=== PATIENT | female | born 1945 | race Caucasian/White ===

== ENCOUNTER 2018-06-06 13:39 | Emergency (ER) | payer MEDICARE, MEDICAID ==
[~2018-06-06] VITALS: Ht 162.6 cm; Wt 70.0 kg
[2018-06-06] MEDS ORDERED: ketorolac trometh. 30mg/ml inj. IM ONE (13:55)
[2018-06-06] MEDS ORDERED: HYDROcodone/acetaminophen 10/325mg tab PO ONE (13:55)
[2018-06-06] MEDS ORDERED: morphine 4 MG/ML inj SYRINge IM ONE (13:55)
[2018-06-06] MEDS ORDERED: ketorolac tromethamine 15mg/ml inj. IM ONE (14:00)
[2018-06-06 14:21] VITALS: BP 143/84
[2018-06-06] MEDS ORDERED: colchicine 0.6mg tablet PO ONE (14:35)
[2018-06-06] MEDS ORDERED: OXYC-150 PO (14:57)
== END 2018-06-06 16:13 | disposition home or self-care (01) ==
LOC: ER 13:40
DX: M25.531 Pain in right wrist (principal); M19.90 Unspecified osteoarthritis, unspecified site; G89.29 Other chronic pain; Z86.73 Personal history of transient ischemic attack (TIA), and cerebral infarction without residual deficits; F17.200 Nicotine dependence, unspecified, uncomplicated
CPT/HCPCS: 96372; 99284; J1885; J2270

== ENCOUNTER 2020-04-17 07:43 | Emergency (ER) | payer MEDICARE, MEDICAID ==
[~2020-04-17] VITALS: Ht 165.1 cm; Wt 113.0 kg
[~2020-04-17 07:43] MED LIST: OXYC-150 PO
[2020-04-17 07:47] VITALS: BP 149/73
[2020-04-17] MEDS ORDERED: ketorolac trometh. 30mg/ml inj. IV ONE (08:20)
[2020-04-17] MEDS ORDERED: normal saline 1000ml 1,000 ML IV ONE (08:20)
[2020-04-17] MEDS ORDERED: HYDROcodone/acetaminophen 5mg/325mg tablet PO ONE (08:20)
[2020-04-17] MEDS ORDERED: ondansetron/PF 4mg/2ml inj IV ONE (08:20)
[2020-04-17] MEDS ORDERED: acetaminophen 325mg tablet PO ONE (08:20)
[2020-04-17] MEDS ORDERED: TRAM50TA2 PO (08:21)
== END 2020-04-17 12:12 | disposition home or self-care (01) ==
LOC: ER 07:43
DX: G89.29 Other chronic pain (principal); M25.532 Pain in left wrist; M25.531 Pain in right wrist; M19.90 Unspecified osteoarthritis, unspecified site; M79.7 Fibromyalgia; F32.9 Major depressive disorder, single episode, unspecified; Z98.84 Bariatric surgery status; Z79.899 Other long term (current) drug therapy
CPT/HCPCS: 96361; 96374; 96375; 99284; J1885; J2405; J7030

== ENCOUNTER 2020-04-24 13:54 | Emergency (ER) | payer MEDICARE, MEDICAID ==
[~2020-04-24] VITALS: Ht 162.6 cm; Wt 51.0 kg
[~2020-04-24 13:54] MED LIST changes: +TRAM50TA2 PO
[2020-04-24] MEDS ORDERED: ketorolac tromethamine 15mg/ml inj. IM ONE (17:15)
[2020-04-24 17:51] LABS: BASOPHILS # (AUTO) 0.1 X10'3 (0-0.2); EOSINOPHILS # (AUTO) 0.1 X10'3 (0-0.9); EOSINOPHILS % (AUTO) 1.1 % (0-6); HEMATOCRIT 30.5 % (35.0-45.0); HEMOGLOBIN 10.4 g/dl (12.0-16.0); LYMPHOCYTES # (AUTO) 1.9 X10'3 (1.1-4.8); LYMPHOCYTES % (AUTO) 28.2 % (21-51); MEAN CORPUSCULAR HEMOGLOBIN 32.9 PG (27.0-31.0); MEAN CORPUSCULAR VOLUME 96.8 FL (78-98); MONOCYTES # (AUTO) 0.8 X10'3 (0-0.9); MONOCYTES % (AUTO) 11.5 % (2-12); NEUTROPHILS % (AUTO) 58.2 % (42-75); PLATELET COUNT 271 X10'3 (140-440); RED BLOOD COUNT 3.15 X10'6 (4.20-5.60); RED CELL DISTRIBUTION WIDTH 14.1 % (11.5-14.5); WHITE BLOOD COUNT 6.9 X10'3 (4.5-11.0)
[2020-04-24 18:01] LABS: ALBUMIN 2.9 G/DL (3.4-5.0); ANION GAP 8 (8-16); BLOOD UREA NITROGEN 10 MG/DL (7-18); BUN/CREATININE RATIO 10.3 (6.6-38.0); C-REACTIVE PROTEIN 3.65 MG/DL (0.0-0.5); CALCIUM 8.3 MG/DL (8.5-10.1); CHLORIDE 104 MMOL/L (99-107); CREATININE 0.97 MG/DL (0.40-0.90); GLUCOSE 95 MG/DL (70-104); POTASSIUM 3.2 MMOL/L (3.5-5.1); SODIUM 138 MMOL/L (135-145); TOTAL CARBON DIOXIDE 25.7 MMOL/L (24-32); eGFR 56 ML/MIN
[2020-04-24] MEDS ORDERED: IBUP-1984 PO (18:18)
[2020-04-24] MEDS ORDERED: PRED20TA PO (18:18)
[2020-04-24 18:39] VITALS: BP 126/60
== END 2020-04-24 18:42 | disposition home or self-care (01) ==
LOC: ER 13:54
DX: M13.132 Monoarthritis, not elsewhere classified, left wrist (principal); M13.131 Monoarthritis, not elsewhere classified, right wrist; F32.9 Major depressive disorder, single episode, unspecified; G89.29 Other chronic pain; Z98.84 Bariatric surgery status
CPT/HCPCS: 36415; 80048; 85025; 85651; 86140; 96372; 99283; J1885

== ENCOUNTER 2021-08-31 15:34 | Emergency (ER) | payer MEDICARE, MEDICAID ==
[~2021-08-31] VITALS: Ht 165.1 cm; Wt 50.0 kg
[~2021-08-31 15:34] MED LIST changes: -TRAM50TA2 PO
--- NOTE | 2021-08-31 17:40 | NUR ---
[facility] CALLED FOR PT ETA 30 MINS
[2021-08-31 18:05] VITALS: BP 133/67
== END 2021-08-31 18:07 | disposition home or self-care (01) ==
LOC: ER 15:35
DX: S60.511A Abrasion of right hand, initial encounter (principal); S80.211A Abrasion, right knee, initial encounter; R53.1 Weakness; M79.601 Pain in right arm; M25.531 Pain in right wrist; M19.90 Unspecified osteoarthritis, unspecified site; G89.29 Other chronic pain; F32.A Depression, unspecified; Z86.73 Personal history of transient ischemic attack (TIA), and cerebral infarction without residual deficits; Z98.890 Other specified postprocedural states; Z79.899 Other long term (current) drug therapy; W18.09XA Striking against other object with subsequent fall, initial encounter; Y93.89 Activity, other specified; Y92.89 Other specified places as the place of occurrence of the external cause; Y99.8 Other external cause status
CPT/HCPCS: 99284

== ENCOUNTER 2021-12-05 12:05 | Emergency (ER) | payer MEDICARE, MEDICAID ==
[~2021-12-05] VITALS: Ht 165.1 cm; Wt 52.0 kg
[2021-12-05 13:21] LABS: BASOPHILS % (AUTO) 0.6 % (0-1); EOSINOPHILS # (AUTO) 0.1 X10'3 (0-0.9); HEMATOCRIT 30.5 % (35.0-45.0); HEMOGLOBIN 10.2 g/dl (12.0-16.0); LYMPHOCYTES # (AUTO) 1.6 X10'3 (1.1-4.8); LYMPHOCYTES % (AUTO) 30.2 % (21-51); MEAN CORPUSCULAR HEMOGLOBIN 32.8 PG (27.0-31.0); MEAN CORPUSCULAR HGB CONC 33.6 g/dL (33.0-36.5); MEAN CORPUSCULAR VOLUME 97.5 FL (78-98); MONOCYTES # (AUTO) 0.6 X10'3 (0-0.9); MONOCYTES % (AUTO) 11.1 % (2-12); NEUTROPHILS % (AUTO) 56.1 % (42-75); PLATELET COUNT 234 X10'3 (140-440); RED BLOOD COUNT 3.12 X10'6 (4.20-5.60); RED CELL DISTRIBUTION WIDTH 13.9 % (11.5-14.5); WHITE BLOOD COUNT 5.4 X10'3 (4.5-11.0)
[2021-12-05 13:36] LABS: ALANINE AMINOTRANSFERASE 28 U/L (12-78); ALBUMIN/GLOBULIN RATIO 1.1 (1.1-1.5); ALKALINE PHOSPHATASE 67 IU/L (46-116); ANION GAP 9 (8-16); ASPARTATE AMINO TRANSFERASE 25 U/L (10-37); BILIRUBIN,TOTAL 0.3 MG/DL (0.1-1.0); BLOOD UREA NITROGEN 12 MG/DL (7-18); BUN/CREATININE RATIO 14.3 (6.6-38.0); CALCIUM 8.7 MG/DL (8.5-10.1); CHLORIDE 104 MMOL/L (99-107); CREATININE 0.84 MG/DL (0.40-0.90); GLUCOSE 115 MG/DL (70-104); POTASSIUM 3.4 MMOL/L (3.5-5.1); SODIUM 138 MMOL/L (135-145); TOTAL CARBON DIOXIDE 25.4 MMOL/L (24-32); TOTAL PROTEIN 5.8 G/DL (6.4-8.2); eGFR 66 ML/MIN
[2021-12-05 14:44] VITALS: BP 120/78
== END 2021-12-05 14:46 | disposition home or self-care (01) ==
LOC: ER 12:05
DX: R07.9 Chest pain, unspecified (principal); R06.02 Shortness of breath; G89.29 Other chronic pain; F32.A Depression, unspecified; F17.210 Nicotine dependence, cigarettes, uncomplicated
CPT/HCPCS: 36415; 71045; 80053; 83880; 84484; 85025; 93005; 99285

== ENCOUNTER 2022-03-08 15:09 | Inpatient (IN) | payer MEDICARE, MEDICAID ==
[~2022-03-08] VITALS: Ht 165.1 cm; Wt 50.0 kg
[2022-03-08] MEDS ORDERED: normal saline 1000ML IV soln IVB ONE (16:05)
[2022-03-08 17:02] LABS: BASOPHILS % (AUTO) 0.4 % (0-1); EOSINOPHILS % (AUTO) 0.7 % (0-6); HEMOGLOBIN 10.3 g/dl (12.0-16.0); LYMPHOCYTES # (AUTO) 1.5 X10'3 (1.1-4.8); LYMPHOCYTES % (AUTO) 22.4 % (21-51); MEAN CORPUSCULAR HEMOGLOBIN 34.6 PG (27.0-31.0); MEAN CORPUSCULAR HGB CONC 34.3 g/dL (33.0-36.5); MEAN CORPUSCULAR VOLUME 100.7 FL (78-98); MEAN PLATELET VOLUME 7.1 FL (7.4-10.4); MONOCYTES # (AUTO) 1.1 X10'3 (0-0.9); MONOCYTES % (AUTO) 16.1 % (2-12); NEUTROPHILS # (AUTO) 4.1 X10'3 (1.8-7.7); NEUTROPHILS % (AUTO) 60.4 % (42-75); PLATELET COUNT 203 X10'3 (140-440); RED BLOOD COUNT 2.98 X10'6 (4.20-5.60); WHITE BLOOD COUNT 6.7 X10'3 (4.5-11.0)
[2022-03-08 17:19] LABS: ALANINE AMINOTRANSFERASE 26 U/L (12-78); ALBUMIN 2.5 G/DL (3.4-5.0); ALBUMIN/GLOBULIN RATIO 0.9 (1.1-1.5); ALKALINE PHOSPHATASE 68 IU/L (46-116); ANION GAP 8 (8-16); ASPARTATE AMINO TRANSFERASE 20 U/L (10-37); BILIRUBIN,TOTAL 0.7 MG/DL (0.1-1.0); BLOOD UREA NITROGEN 13 MG/DL (7-18); BUN/CREATININE RATIO 15.5 (6.6-38.0); CALCIUM 7.6 MG/DL (8.5-10.1); CHLORIDE 108 MMOL/L (99-107); CREATININE 0.84 MG/DL (0.40-0.90); GLUCOSE 101 MG/DL (70-104); POTASSIUM 3.1 MMOL/L (3.5-5.1); SODIUM 138 MMOL/L (135-145); TOTAL CARBON DIOXIDE 21.7 MMOL/L (24-32); TOTAL PROTEIN 5.3 G/DL (6.4-8.2); eGFR 66 ML/MIN
[2022-03-08 18:30] LABS: CLARITY,URINE CLEAR (Clear); COLOR,URINE YELLOW (Yellow); GLUCOSE, URINE NEGATIVE (Neg); KETONES,URINE NEGATIVE (Neg); LEUKOCYTE ESTERASE ,URINE NEGATIVE (Neg); NITRITES, URINE NEGATIVE (Neg); OCCULT BLOOD,URINE TRACE-INTACT (Neg); PH,URINE 5.5 (4.8-8.0); PROTEIN,URINE NEGATIVE (Neg); UROBILINOGEN,URINE 0.2 E.U/dL (0.2-1.0)
[2022-03-08] MEDS ORDERED: ondansetron/PF 4mg/2ml inj IV PRN (18:30)
[2022-03-08] MEDS ORDERED: acetaminophen 325mg tablet PO PRN ×2 (18:30)
[2022-03-08] MEDS ORDERED: mag hydrox/Alum hydrox/simeth 30ml oral suspension PO PRN (18:30)
[2022-03-08] MEDS ORDERED: morphine 2 MG/ML inj. syringe IV PRN ×2 (18:30)
[2022-03-08] MEDS ORDERED: magnesium hydroxide 30ml (MOM) UD suspension PO PRN (18:30)
[2022-03-08 18:45] LABS: UA COLLECTION TYPE CLN CATCH MIDSTREAM
[2022-03-08 18:52] LABS: WBC,URINE 0-4 /HPF (0-4)
[2022-03-08 18:53] LABS: BACTERIA,URINE NONE SEEN /HPF (Neg); MUCUS STRANDS FEW /LPF (Neg); RBC,URINE 0-2 /HPF (0-2); SQUAMOUS EPITHELIAL CELL,UR FEW /LPF (FEW)
[2022-03-08] MEDS: pantoprazole 40MG/NS 100ML BAG 100 ML IV SCH (20:19)
[2022-03-08] MEDS: docusate sod 100mg capsule PO SCH (20:20)
[2022-03-08] MEDS: normal saline 1000ml 1,000 ML IV SCH (20:20)
--- NOTE | 2022-03-08 20:40 | NUR ---
PATIENT ADMITTED TO ROOM 3023B FROM ER FOR GI BLEED. PLACED COMFORTABLE IN BED. VITAL SIGNS TAKEN AND RECORDED.
[2022-03-08 21:00] VITALS: BP_SYST 106; BP_SYST 99; BP_DIAS 56; BP_DIAS 58
[2022-03-08 22:40] VITALS: BP 99/56
[2022-03-09] VITALS (14 sets, daily range): BP systolic 99–154; BP diastolic 44–70
[2022-03-09] MEDS: pantoprazole 40MG/NS 100ML BAG 100 ML IV SCH ×6 (00:07→21:31)
[2022-03-09] MEDS: normal saline 1000ml 1,000 ML IV SCH ×2 (00:11→09:01)
--- NOTE | 2022-03-09 06:39 | NUR ---
Problems reprioritized. Patient report given, questions answered & plan of care reviewed with JANETT MORA.
--- NOTE | 2022-03-09 06:49 | NUR ---
Patient in room ORTHO 4023. I have received report from ABBY Sharif and had the opportunity to ask questions and assume patient care.
[2022-03-09 07:36] LABS: BASOPHILS % (AUTO) 0.8 % (0-1); EOSINOPHILS # (AUTO) 0.1 X10'3 (0-0.9); EOSINOPHILS % (AUTO) 3.2 % (0-6); HEMOGLOBIN 9.9 g/dl (12.0-16.0); LYMPHOCYTES # (AUTO) 1.5 X10'3 (1.1-4.8); LYMPHOCYTES % (AUTO) 32.1 % (21-51); MEAN CORPUSCULAR HEMOGLOBIN 34.6 PG (27.0-31.0); MEAN CORPUSCULAR HGB CONC 34.2 g/dL (33.0-36.5); MEAN CORPUSCULAR VOLUME 101.4 FL (78-98); MEAN PLATELET VOLUME 7.2 FL (7.4-10.4); MONOCYTES # (AUTO) 0.6 X10'3 (0-0.9); MONOCYTES % (AUTO) 12.5 % (2-12); NEUTROPHILS # (AUTO) 2.4 X10'3 (1.8-7.7); NEUTROPHILS % (AUTO) 51.4 % (42-75); PLATELET COUNT 187 X10'3 (140-440); RED BLOOD COUNT 2.86 X10'6 (4.20-5.60); RED CELL DISTRIBUTION WIDTH 14.1 % (11.5-14.5); WHITE BLOOD COUNT 4.6 X10'3 (4.5-11.0)
[2022-03-09 07:45] LABS: ALBUMIN 2.2 G/DL (3.4-5.0); ANION GAP 11 (8-16); BLOOD UREA NITROGEN 11 MG/DL (7-18); BUN/CREATININE RATIO 16.2 (6.6-38.0); CALCIUM 7.5 MG/DL (8.5-10.1); CHLORIDE 115 MMOL/L (99-107); CREATININE 0.68 MG/DL (0.40-0.90); GLUCOSE 76 MG/DL (70-104); SODIUM 145 MMOL/L (135-145); eGFR 84 ML/MIN
[2022-03-09 07:52] LABS: POTASSIUM 2.9 MMOL/L (3.5-5.1)
[2022-03-09] MEDS: docusate sod 100mg capsule PO SCH ×2 (08:00→19:59)
--- NOTE | 2022-03-09 08:11 | NUR ---
PAGER ID: [phone] MESSAGE: Geraldine O/N 5430 ka[address] Rodas 4023B critical K 2.9, no protocol ordered. Please call with orders, thank you
[2022-03-09] MEDS ORDERED: potassium Cl 20 mEq SR tablet PO ONE (08:20)
--- NOTE | 2022-03-09 09:09 | NUR ---
Noted pt with a low BMI using documented wt of 50 kg which isn't scaled however is consistent with documented wt hx from previous visits this year with most recent scaled wt h/o 50.95 kg 04/24/2020. Per EMR pt with no significant decrease in muscle strength or edema and pt appears well developed well nourished per ED report. Pt currently lacks a minimum of two criteria for malnutrition. Will continue to follow. Addendum: 03/09/22 at [address] Amended: Links added.
[2022-03-09] MEDS: ceFAZolin/D5W- 1GM premix 50 ML IV SCH ×2 (12:05→17:37)
[2022-03-09] MEDS ORDERED: MIDAZolam 1 MG/ML 5ML VIAL ONE (14:58)
[2022-03-09] MEDS ORDERED: LIDOcaine Viscous 15ml cup ONE (14:58)
[2022-03-09] MEDS ORDERED: fentaNYL/PF 50MCG/1 ML 2ML syringe ONE (14:58)
--- NOTE | 2022-03-09 17:27 | NUR ---
PAGER ID: [phone] MESSAGE: Geraldine O/N [id number] ka[address] Rodas [id number] pt back from GI lab, gastritis and esophagitis noted. Ok to start pt on clear liquid diet? please call with orders, thank you
[2022-03-09] MEDS: traMADol 50MG tablet PO PRN (17:37)
--- NOTE | 2022-03-09 17:58 | NUR ---
PAGER ID: [phone] MESSAGE: Geraldine O/N [id number] ka[address] Rodas [id number] 2nd page. Pt continues to ask about diet, please call with orders. Thank you Addendum: 03/09/22 at 1759 by Geraldine Chung RN orders received for full liquid diet, advance as tolerated to regular
[2022-03-09] MEDS ORDERED: ASPI-1397 PO (18:26)
[2022-03-09] MEDS ORDERED: MAGN250T11 PO (18:26)
[2022-03-09] MEDS ORDERED: CHOL500050 PO (18:26)
[2022-03-09] MEDS ORDERED: MELO-102 PO (18:26)
[2022-03-09] MEDS ORDERED: CYAN500T71 PO (18:26)
--- NOTE | 2022-03-09 18:27 | NUR ---
Problems reprioritized. Patient report given, questions answered & plan of care reviewed with ABBY Sharif.
--- NOTE | 2022-03-09 18:30 | NUR ---
Patient in room ORTHO 4023. I have received report from JANETT MORA and had the opportunity to ask questions and assume patient care.
[2022-03-10] MEDS: ceFAZolin/D5W- 1GM premix 50 ML IV SCH ×2 (00:16→08:25)
[2022-03-10] MEDS: normal saline 1000ml 1,000 ML IV SCH ×2 (00:16→10:30)
[2022-03-10] MEDS: pantoprazole 40MG/NS 100ML BAG 100 ML IV SCH ×3 (01:00→11:00)
[2022-03-10 02:00] VITALS: BP 139/70
[2022-03-10 06:00] VITALS: BP 106/36
--- NOTE | 2022-03-10 06:18 | NUR ---
Problems reprioritized. Patient report given, questions answered & plan of care reviewed with JANETT MORA.
--- NOTE | 2022-03-10 06:33 | NUR ---
Patient in room ORTHO 4023. I have received report from ABBY Sharif and had the opportunity to ask questions and assume patient care.
[2022-03-10 06:36] LABS: BASOPHILS % (AUTO) 0.9 % (0-1); EOSINOPHILS # (AUTO) 0.1 X10'3 (0-0.9); EOSINOPHILS % (AUTO) 2.7 % (0-6); HEMATOCRIT 28.9 % (35.0-45.0); HEMOGLOBIN 9.8 g/dl (12.0-16.0); LYMPHOCYTES # (AUTO) 1.5 X10'3 (1.1-4.8); LYMPHOCYTES % (AUTO) 34.7 % (21-51); MEAN CORPUSCULAR HEMOGLOBIN 34.2 PG (27.0-31.0); MEAN CORPUSCULAR HGB CONC 33.8 g/dL (33.0-36.5); MEAN CORPUSCULAR VOLUME 101.1 FL (78-98); MEAN PLATELET VOLUME 7.1 FL (7.4-10.4); MONOCYTES # (AUTO) 0.5 X10'3 (0-0.9); NEUTROPHILS # (AUTO) 2.1 X10'3 (1.8-7.7); NEUTROPHILS % (AUTO) 49.7 % (42-75); PLATELET COUNT 202 X10'3 (140-440); RED BLOOD COUNT 2.86 X10'6 (4.20-5.60); WHITE BLOOD COUNT 4.3 X10'3 (4.5-11.0)
[2022-03-10 06:52] LABS: ANION GAP 12 (8-16); BLOOD UREA NITROGEN 9 MG/DL (7-18); BUN/CREATININE RATIO 13.2 (6.6-38.0); CALCIUM 7.4 MG/DL (8.5-10.1); CHLORIDE 112 MMOL/L (99-107); CREATININE 0.68 MG/DL (0.40-0.90); GLUCOSE 78 MG/DL (70-104); POTASSIUM 3.5 MMOL/L (3.5-5.1); SODIUM 141 MMOL/L (135-145); TOTAL CARBON DIOXIDE 17.3 MMOL/L (24-32); eGFR 84 ML/MIN
[2022-03-10] MEDS: docusate sod 100mg capsule PO SCH (08:00)
[2022-03-10] MEDS: traMADol 50MG tablet PO PRN (08:26)
[2022-03-10] MEDS ORDERED: AMOX-580 PO (08:51)
[2022-03-10] MEDS ORDERED: TRAM50TA2 PO (08:51)
[2022-03-10] MEDS ORDERED: PANT-47 PO (08:51)
[2022-03-10 10:00] VITALS: BP 126/48
--- NOTE | 2022-03-10 13:05 | NUR ---
Pt discharged to home, with all belongings, in private vehicle accompanied by friend. Discharge instructions and medications reviewed. Pt instructed to follow up with PCP in 1-2 weeks, and to seek medical attention for any new or worsening symptoms. Pt instructed to abstain from alcohol and all NSAIDs. Pt states understanding and willingness to comply with all discharge instructions. IV DC'd, cannula intact. Pt escorted to front lobby via wheelchair by PCT.
== END 2022-03-10 13:05 | disposition home or self-care (01) | DRG 368 ==
LOC: ER 15:09 → ED HOLD 18:33 → EDBEDREQ 20:35 → ORTHO 4S 22:35
PROVIDERS: ADMIT Internal Medicine; ATTEND Internal Medicine
PROC: 0DJ08ZZ Inspection of Upper Intestinal Tract, Via Natural or Artificial Opening Endoscopic (ICD-10-PCS; principal; 2022-03-09)
DX: K20.91 Esophagitis, unspecified with bleeding (principal); K29.71 Gastritis, unspecified, with bleeding; D62 Acute posthemorrhagic anemia; L03.116 Cellulitis of left lower limb; E87.6 Hypokalemia; F32.A Depression, unspecified; G62.9 Polyneuropathy, unspecified; G89.29 Other chronic pain; M19.90 Unspecified osteoarthritis, unspecified site; F17.210 Nicotine dependence, cigarettes, uncomplicated; M06.9 Rheumatoid arthritis, unspecified; M79.7 Fibromyalgia; Z83.3 Family history of diabetes mellitus; Z86.73 Personal history of transient ischemic attack (TIA), and cerebral infarction without residual deficits; Z98.84 Bariatric surgery status; Z90.49 Acquired absence of other specified parts of digestive tract; Z71.6 Tobacco abuse counseling
CPT/HCPCS: 36415; 43239; 71045; 73620; 74176; 80048; 80053; 81001; 83880; 84132; 85025; 86885; 86900; 86901; 87081; 93005; 99152; 99285; A4620; C9113; G0378; J0690; J2250; J2270; J3010; J7030

== ENCOUNTER 2022-03-22 15:43 | Emergency (ER) | payer MEDICARE, MEDICAID ==
[~2022-03-22] VITALS: Ht 165.1 cm; Wt 52.3 kg
[~2022-03-22 15:43] MED LIST changes: +AMOX-580 PO; +CHOL500050 PO; +CYAN500T71 PO; +MAGN250T11 PO; -OXYC-150 PO; +PANT-47 PO; +TRAM50TA2 PO
[2022-03-22 16:28] VITALS: BP 96/64
[2022-03-22] MEDS ORDERED: LIDOcaine 5% patch TP STA (17:54)
[2022-03-22] MEDS ORDERED: LIDO700A32 TOP (17:58)
== END 2022-03-22 18:33 | disposition home or self-care (01) ==
LOC: ER 15:44
DX: S20.212A Contusion of left front wall of thorax, initial encounter (principal); M19.90 Unspecified osteoarthritis, unspecified site; G89.29 Other chronic pain; W19.XXXA Unspecified fall, initial encounter; Y93.89 Activity, other specified; Y92.89 Other specified places as the place of occurrence of the external cause; Y99.8 Other external cause status
CPT/HCPCS: 71045; 99284

== ENCOUNTER 2022-04-06 16:07 | Emergency (ER) | payer MEDICARE, MEDICAID ==
[~2022-04-06] VITALS: Ht 165.1 cm; Wt 50.0 kg
[~2022-04-06 16:07] MED LIST changes: +LIDO700A32 TOP
[2022-04-06 17:19] LABS: BASOPHILS # (AUTO) 0.1 X10'3 (0-0.2); EOSINOPHILS # (AUTO) 1.8 X10'3 (0-0.9); EOSINOPHILS % (AUTO) 19.6 % (0-6); HEMATOCRIT 33.5 % (35.0-45.0); HEMOGLOBIN 11.1 g/dl (12.0-16.0); LYMPHOCYTES # (AUTO) 1.9 X10'3 (1.1-4.8); LYMPHOCYTES % (AUTO) 20.3 % (21-51); MEAN CORPUSCULAR HEMOGLOBIN 32.7 PG (27.0-31.0); MEAN CORPUSCULAR HGB CONC 33.2 g/dL (33.0-36.5); MEAN CORPUSCULAR VOLUME 98.3 FL (78-98); MEAN PLATELET VOLUME 7.2 FL (7.4-10.4); MONOCYTES % (AUTO) 10.7 % (2-12); NEUTROPHILS # (AUTO) 4.5 X10'3 (1.8-7.7); NEUTROPHILS % (AUTO) 48.4 % (42-75); PLATELET COUNT 339 X10'3 (140-440); RED CELL DISTRIBUTION WIDTH 14.3 % (11.5-14.5); WHITE BLOOD COUNT 9.2 X10'3 (4.5-11.0)
[2022-04-06 17:31] LABS: ALANINE AMINOTRANSFERASE 15 U/L (12-78); ALBUMIN 2.4 G/DL (3.4-5.0); ALBUMIN/GLOBULIN RATIO 0.8 (1.1-1.5); ALKALINE PHOSPHATASE 143 IU/L (46-116); ANION GAP 11 (8-16); ASPARTATE AMINO TRANSFERASE 17 U/L (10-37); BILIRUBIN,TOTAL 0.3 MG/DL (0.1-1.0); BLOOD UREA NITROGEN 11 MG/DL (7-18); BUN/CREATININE RATIO 13.4 (6.6-38.0); CALCIUM 8.5 MG/DL (8.5-10.1); CHLORIDE 105 MMOL/L (99-107); CREATININE 0.82 MG/DL (0.40-0.90); GLUCOSE 106 MG/DL (70-104); POTASSIUM 3.6 MMOL/L (3.5-5.1); SODIUM 141 MMOL/L (135-145); TOTAL CARBON DIOXIDE 24.8 MMOL/L (24-32); TOTAL PROTEIN 5.6 G/DL (6.4-8.2); eGFR 67 ML/MIN
--- NOTE | 2022-04-06 18:24 | NUR ---
pATIENT WANTING TO ama Josi ly AT BEDSIDE REASSURED PATIENT THAT WE ARE WAITING FOR A LAB
[2022-04-06] MEDS ORDERED: iohexol 350MG/ML 100ml bottle IV ONE (19:31)
[2022-04-06 19:34] LABS: PLATELET ESTIMATE NORMAL; TOTAL CELLS COUNTED 100
[2022-04-06 19:35] LABS: BURR CELLS FEW
[2022-04-06 20:30] VITALS: BP 135/82
[2022-04-06] MEDS ORDERED: furosemide 20MG tablet PO ONE (20:40)
[2022-04-06] MEDS ORDERED: POTA-192 PO ×2 (20:42)
[2022-04-06] MEDS ORDERED: FURO-150 PO (20:42)
== END 2022-04-06 21:04 | disposition home or self-care (01) ==
LOC: ER 16:08
DX: J90 Pleural effusion, not elsewhere classified (principal); I50.9 Heart failure, unspecified; R07.89 Other chest pain; M19.90 Unspecified osteoarthritis, unspecified site; G89.29 Other chronic pain; F32.A Depression, unspecified; Z86.73 Personal history of transient ischemic attack (TIA), and cerebral infarction without residual deficits; Z98.890 Other specified postprocedural states; Z72.89 Other problems related to lifestyle; Z79.2 Long term (current) use of antibiotics; Z79.899 Other long term (current) drug therapy
CPT/HCPCS: 36415; 71045; 71275; 80053; 83880; 84484; 85007; 85025; 85379; 93005; 99285; J3490; Q9967

== ENCOUNTER 2022-04-10 22:59 | Inpatient (IN) | payer MEDICARE, MEDICAID ==
[~2022-04-10] VITALS: Ht 162.6 cm; Wt 52.3 kg
[~2022-04-10 22:59] MED LIST changes: +FURO-150 PO; +POTA-192 PO
[2022-04-11 00:05] LABS: BASOPHILS # (AUTO) 0.1 X10'3 (0-0.2); BASOPHILS % (AUTO) 1.3 % (0-1); EOSINOPHILS # (AUTO) 0.1 X10'3 (0-0.9); EOSINOPHILS % (AUTO) 1.3 % (0-6); HEMATOCRIT 32.5 % (35.0-45.0); HEMOGLOBIN 11.2 g/dl (12.0-16.0); LYMPHOCYTES # (AUTO) 1.6 X10'3 (1.1-4.8); MEAN CORPUSCULAR HEMOGLOBIN 32.9 PG (27.0-31.0); MEAN CORPUSCULAR HGB CONC 34.4 g/dL (33.0-36.5); MEAN CORPUSCULAR VOLUME 95.6 FL (78-98); MEAN PLATELET VOLUME 6.9 FL (7.4-10.4); MONOCYTES # (AUTO) 1.1 X10'3 (0-0.9); MONOCYTES % (AUTO) 14.1 % (2-12); NEUTROPHILS # (AUTO) 5.1 X10'3 (1.8-7.7); NEUTROPHILS % (AUTO) 63.3 % (42-75); PLATELET COUNT 367 X10'3 (140-440); RED CELL DISTRIBUTION WIDTH 14.2 % (11.5-14.5)
[2022-04-11 00:18] LABS: ALANINE AMINOTRANSFERASE 12 U/L (12-78); ALBUMIN 2.4 G/DL (3.4-5.0); ALBUMIN/GLOBULIN RATIO 0.6 (1.1-1.5); ALKALINE PHOSPHATASE 134 IU/L (46-116); ANION GAP 11 (8-16); ASPARTATE AMINO TRANSFERASE 17 U/L (10-37); BILIRUBIN,TOTAL 0.6 MG/DL (0.1-1.0); BLOOD UREA NITROGEN 12 MG/DL (7-18); BUN/CREATININE RATIO 16.9 (6.6-38.0); CALCIUM 8.8 MG/DL (8.5-10.1); CHLORIDE 102 MMOL/L (99-107); CREATININE 0.71 MG/DL (0.40-0.90); GLUCOSE 95 MG/DL (70-104); POTASSIUM 3.2 MMOL/L (3.5-5.1); SODIUM 136 MMOL/L (135-145); TOTAL CARBON DIOXIDE 23.1 MMOL/L (24-32); TOTAL PROTEIN 6.1 G/DL (6.4-8.2); eGFR 79 ML/MIN
[2022-04-11] MEDS ORDERED: POTASSIUM BICARB 20meq eff tab 20 MEQ TABLET.EFF PO ONE (01:05)
[2022-04-11] MEDS ORDERED: acetaminophen 325mg tablet PO ONE (02:05)
--- NOTE | 2022-04-11 02:06 | NUR ---
PO MEDS X2 GIVEN
[2022-04-11 02:30] LABS: CLARITY,URINE CLOUDY (Clear); COLOR,URINE YELLOW (Yellow); GLUCOSE, URINE NEGATIVE (Neg); KETONES,URINE TRACE mg/dl (Neg); LEUKOCYTE ESTERASE ,URINE MODERATE (Neg); NITRITES, URINE NEGATIVE (Neg); OCCULT BLOOD,URINE TRACE-INTACT (Neg); PROTEIN,URINE NEGATIVE (Neg); UROBILINOGEN,URINE 0.2 E.U/dL (0.2-1.0)
[2022-04-11 02:31] LABS: UA COLLECTION TYPE NON-SPECIFIED
[2022-04-11 02:39] LABS: HYALINE CASTS 0-3 /LPF (NEGATIVE); SQUAMOUS EPITHELIAL CELL,UR MANY /LPF (FEW)
[2022-04-11 02:40] LABS: WBC,URINE 50-100 /HPF (0-4)
[2022-04-11 02:41] LABS: BACTERIA,URINE 3+ /HPF (Neg)
[2022-04-11] MEDS ORDERED: iohexol 350MG/ML 100ml bottle IV ONE (06:48)
[2022-04-11] MEDS ORDERED: potassium Cl 40MEQ/1/2NS 520ml 520 ML IV PRN (10:00)
[2022-04-11] MEDS ORDERED: magnesium 4gm in 100ml NS 100 ML IV PRN (10:00)
[2022-04-11] MEDS ORDERED: mag hydrox/Alum hydrox/simeth 30ml oral suspension PO PRN (10:00)
[2022-04-11] MEDS ORDERED: PERFLUTREN PROTEIN-A MICROSPHR (Optison) 0.22 MG/ML 3ML VIAL IV ONE (10:00)
[2022-04-11] MEDS ORDERED: magnesium Cl slow-release 64mg tablet PO PRN (10:00)
[2022-04-11] MEDS ORDERED: ondansetron/PF 4mg/2ml inj IV PRN (10:00)
[2022-04-11] MEDS ORDERED: ondansetron 4mg rapidly disintigrating tab PO PRN (10:00)
[2022-04-11] MEDS ORDERED: magnesium hydroxide 30ml (MOM) UD suspension PO PRN (10:00)
[2022-04-11] MEDS ORDERED: acetaminophen 325mg tablet PO PRN ×2 (10:00)
[2022-04-11] MEDS ORDERED: potassium Cl 20 mEq SR tablet PO PRN ×2 (10:00)
[2022-04-11] MEDS ORDERED: bisacodyl 10mg suppository rectal RC PRN (10:00)
[2022-04-11 10:38] LABS: CHOL/HDL RATIO 2.1 (0.00-4.99); CHOLESTEROL 139 MG/DL (0-200); HDL CHOLESTEROL 67 MG/DL (35-60); LDL CHOLESTEROL 56 MG/DL (50-100); TRIGLYCERIDES 74 MG/DL (20-135)
[2022-04-11 11:27] LABS: MAGNESIUM 1.7 MG/DL (1.5-2.4); POTASSIUM 3.8 MMOL/L (3.5-5.1)
[2022-04-11] MEDS ORDERED: GABA-530 PO (11:35)
[2022-04-11] MEDS ORDERED: MELO-102 PO (11:35)
--- NOTE | 2022-04-11 11:42 | NUR ---
DNR BAND PLACED AND DOUBLE SIGNED WITH JOSEE BENJAMIN RN TRAVELER.
--- NOTE | 2022-04-11 14:22 | NUR ---
care assumed from christina sanchez
[2022-04-11] MEDS ORDERED: POTA-206 PO (14:39)
[2022-04-11] MEDS ORDERED: ASPI-611 PO (14:41)
[2022-04-11] MEDS ORDERED: TRAM50TA2 PO (14:44)
[2022-04-11 20:34] VITALS: BP 130/99
[2022-04-11] MEDS: K and/or MAG REPLACEMENT MC SCH (20:48)
[2022-04-11] MEDS ORDERED: temazepam 15mg capsule PO PRN (21:00)
[2022-04-11 22:52] VITALS: BP 121/68
[2022-04-12 02:31] VITALS: BP 127/64
[2022-04-12] MEDS ORDERED: traMADol 50MG tablet PO STA (03:31)
[2022-04-12 06:00] VITALS: BP 129/72
[2022-04-12 07:35] LABS: ALANINE AMINOTRANSFERASE 14 U/L (12-78); ALBUMIN 2.4 G/DL (3.4-5.0); ALBUMIN/GLOBULIN RATIO 0.6 (1.1-1.5); ALKALINE PHOSPHATASE 133 IU/L (46-116); ANION GAP 10 (8-16); ASPARTATE AMINO TRANSFERASE 18 U/L (10-37); BILIRUBIN,TOTAL 0.5 MG/DL (0.1-1.0); BLOOD UREA NITROGEN 12 MG/DL (7-18); BUN/CREATININE RATIO 15.8 (6.6-38.0); CHLORIDE 103 MMOL/L (99-107); CREATININE 0.76 MG/DL (0.40-0.90); GLUCOSE 86 MG/DL (70-104); MAGNESIUM 1.8 MG/DL (1.5-2.4); POTASSIUM 3.6 MMOL/L (3.5-5.1); SODIUM 137 MMOL/L (135-145); TOTAL CARBON DIOXIDE 23.6 MMOL/L (24-32); TOTAL PROTEIN 6.3 G/DL (6.4-8.2); eGFR 73 ML/MIN
[2022-04-12 07:38] LABS: BASOPHILS # (AUTO) 0.1 X10'3 (0-0.2); BASOPHILS % (AUTO) 1.1 % (0-1); EOSINOPHILS # (AUTO) 0.4 X10'3 (0-0.9); EOSINOPHILS % (AUTO) 5.8 % (0-6); HEMATOCRIT 35.8 % (35.0-45.0); HEMOGLOBIN 11.8 g/dl (12.0-16.0); LYMPHOCYTES # (AUTO) 1.3 X10'3 (1.1-4.8); LYMPHOCYTES % (AUTO) 21.3 % (21-51); MEAN CORPUSCULAR HEMOGLOBIN 31.8 PG (27.0-31.0); MEAN CORPUSCULAR HGB CONC 32.9 g/dL (33.0-36.5); MEAN CORPUSCULAR VOLUME 96.7 FL (78-98); MEAN PLATELET VOLUME 7.6 FL (7.4-10.4); MONOCYTES # (AUTO) 0.6 X10'3 (0-0.9); MONOCYTES % (AUTO) 9.8 % (2-12); NEUTROPHILS # (AUTO) 3.9 X10'3 (1.8-7.7); PLATELET COUNT 358 X10'3 (140-440); WHITE BLOOD COUNT 6.3 X10'3 (4.5-11.0)
[2022-04-12] MEDS: K and/or MAG REPLACEMENT MC SCH (08:00)
[2022-04-12] MEDS ORDERED: enoxaparin 40mg/0.4ml syringe SUBCUT SCH (08:00)
--- NOTE | 2022-04-12 08:24 | NUR ---
Messagekenia VEGA per pt request: RM [id number]: takes tramadol at home for her fibromyalgia, asking to take some here; last dose at 0330a. Thanks Teresa
--- NOTE | 2022-04-12 09:12 | NUR ---
Noted pt with a low BMI using documented wt of 52 kg which isn't scaled however is consistent with documented wt hx from previous visits this year with most recent scaled wt h/o 50.95 kg 04/24/2020. Per EMR pt with no significant decrease in muscle strength or edema and pt appears well developed well nourished per ED report. Pt currently lacks a minimum of two criteria for malnutrition. Will continue to follow. Addendum: 04/12/22 at [address] Amended: Links added.
[2022-04-12] MEDS ORDERED: traMADol 50MG tablet PO PRN (11:05)
--- NOTE | 2022-04-12 12:10 | NUR ---
Clarification: RM [id number]: pt keeps saying she's discharging, but i dont see an order. Is this correct? Thanks Teresa
--- NOTE | 2022-04-17 10:24 | NUR ---
Case management DC follow up: Spoke with Patient via telephone.S/P: Patient Reports: Denies : Acute/continuous C/P, emergent SOC, resp distress, dyspnea. Verbalizes she has no plan, and/or desire to quit smoking. Denies: N/V , vertigo, syncope episodes, orthostatic hypotension, GUPTA, blurry vision, s/s of stroke/BE-FAST; however, complains of weakness in lower extremities. Denies: numbness and/or tingling at lower extremities. Verbalizes she uses front wheel walker.Denies: dysuria, hematuria, abdominal pain,/distension, hematochezia, melena, unexplained bruising, bleeding, fever, chills.Verbalizes understanding of Rx: why prescribed; continues/resumes current Rx as ordered.Verbalizes understanding of s/s that warrant a 02-19/ER visit for further evaluation.Verbalizes her PCP is Wendy FUNEZ , and plans to schedule follow up appoint with her.Declines assistance to schedule follow up appointment.Verbalizes the nursing care was great. Needs met, questions/concerns addressed at DC.No further questions/concerns regarding recent hospital stay and/or DC status at this time. Addendum: 04/17/22 at 1259 by Caitlyn Santiago RN Verbalizes [facility] to see her.Verbalizes she is trying to get [facility]
[2022-04-19] MEDS ORDERED: FURO20TA4 PO (18:37)
== END 2022-04-12 15:29 | disposition home health service (06) | DRG 313 ==
LOC: ER 23:00 → ED HOLD 04-11 10:07 → PCU 3S 04-11 20:00
PROVIDERS: ADMIT Family Medicine; ATTEND Family Medicine
PROC: B3251ZZ Computerized Tomography (CT Scan) of Bilateral Common Carotid Arteries using Low Osmolar Contrast (ICD-10-PCS; principal; 2022-04-11)
PROC: B32G1ZZ Computerized Tomography (CT Scan) of Bilateral Vertebral Arteries using Low Osmolar Contrast (ICD-10-PCS; 2022-04-11)
PROC: B32R1ZZ Computerized Tomography (CT Scan) of Intracranial Arteries using Low Osmolar Contrast (ICD-10-PCS; 2022-04-11)
PROC: B3281ZZ Computerized Tomography (CT Scan) of Bilateral Internal Carotid Arteries using Low Osmolar Contrast (ICD-10-PCS; 2022-04-11)
DX: R07.89 Other chest pain (principal); I69.351 Hemiplegia and hemiparesis following cerebral infarction affecting right dominant side; E78.5 Hyperlipidemia, unspecified; E87.6 Hypokalemia; G62.9 Polyneuropathy, unspecified; G89.4 Chronic pain syndrome; I10 Essential (primary) hypertension; M19.90 Unspecified osteoarthritis, unspecified site; M79.7 Fibromyalgia; F17.210 Nicotine dependence, cigarettes, uncomplicated; F32.A Depression, unspecified; Z98.84 Bariatric surgery status; Z71.6 Tobacco abuse counseling; Z79.899 Other long term (current) drug therapy
CPT/HCPCS: 36415; 70450; 70496; 70498; 70551; 71045; 72148; 80053; 80061; 81001; 83036; 83735; 83880; 84132; 84443; 84484; 85025; 87081; 93005; 93306; 97116; 97161; 97530; 99285; A4353; G0378; J1650; J3490; Q9967

== ENCOUNTER 2022-04-13 13:12 | Emergency (ER) | payer MEDICARE, MEDICAID ==
[~2022-04-13] VITALS: Ht 165.1 cm; Wt 44.5 kg
[~2022-04-13 13:12] MED LIST changes: -AMOX-580 PO; +ASPI-611 PO; +GABA-530 PO; -LIDO700A32 TOP; -MAGN250T11 PO; +MELO-102 PO; -PANT-47 PO; -POTA-192 PO; +POTA-206 PO
[2022-04-13 14:26] VITALS: BP 126/69
--- NOTE | 2022-04-13 14:29 | NUR ---
PT REFUSING ANY TX AND ASSESSMENT. PT DID NOT WANT TO DO THE GAIT TEST DUE TO LEG PAIN BUT AGREED TO TAKE A FEW STEPS WITH HELP. SHE STATES SHE JUST WANTS TO GO HOME.
[2022-04-19] MEDS ORDERED: FURO20TA4 PO (18:37)
== END 2022-04-13 14:26 | disposition home or self-care (01) ==
LOC: ER 13:12
DX: M79.7 Fibromyalgia (principal); R53.1 Weakness; G62.9 Polyneuropathy, unspecified; M19.90 Unspecified osteoarthritis, unspecified site; G89.29 Other chronic pain
CPT/HCPCS: 99284

== ENCOUNTER 2022-04-14 05:43 | Emergency (ER) | payer MEDICARE, MEDICAID ==
[2022-04-14] MEDS ORDERED: celeCOXIB 100mg capsule PO SCH (06:40)
[2022-04-14] MEDS ORDERED: celeCOXIB 100mg capsule PO ONE (06:40)
--- NOTE | 2022-04-14 08:40 | NUR ---
Pt walked with a walker with no help, Pt was stable on her feet and felt comfortable walking. Pt stated that she wants to go home at this time.
--- NOTE | 2022-04-14 08:40 | NUR ---
Pt's daughter called and wanted to talk to the MD, MD aware.
--- NOTE | 2022-04-14 08:44 | NUR ---
Doctor is aware of pt passing gait test. Let Doctor know about the pt wanting to go home.
[2022-04-14 09:59] VITALS: BP 143/87
== END 2022-04-14 10:02 | disposition home or self-care (01) ==
LOC: ER 05:44
DX: M54.9 Dorsalgia, unspecified (principal); G89.29 Other chronic pain; F32.A Depression, unspecified; F17.200 Nicotine dependence, unspecified, uncomplicated; Z79.899 Other long term (current) drug therapy
CPT/HCPCS: 72070; 99284

== ENCOUNTER 2023-05-21 03:48 | Emergency (ER) | payer MEDICARE, MEDICAID ==
[~2023-05-21] VITALS: Ht 162.6 cm; Wt 51.8 kg
[~2023-05-21 03:48] MED LIST changes: -FURO-150 PO; +FURO20TA4 PO
[2023-05-21] MEDS ORDERED: oxyCODONE/APAP 5-325mg tablet PO ONE (04:15)
[2023-05-21 04:31] LABS: BASOPHILS # (AUTO) 0.1 X10'3 (0-0.2); BASOPHILS % (AUTO) 1.9 % (0-1); EOSINOPHILS # (AUTO) 0.1 X10'3 (0-0.9); EOSINOPHILS % (AUTO) 2.7 % (0-6); HEMATOCRIT 26.9 % (35.0-45.0); HEMOGLOBIN 8.8 g/dl (12.0-16.0); LYMPHOCYTES # (AUTO) 1.7 X10'3 (1.1-4.8); LYMPHOCYTES % (AUTO) 40.2 % (21-51); MEAN CORPUSCULAR HEMOGLOBIN 29.2 PG (27.0-31.0); MEAN CORPUSCULAR HGB CONC 32.5 g/dL (33.0-36.5); MEAN CORPUSCULAR VOLUME 89.6 FL (78-98); MEAN PLATELET VOLUME 6.8 FL (7.4-10.4); MONOCYTES # (AUTO) 0.4 X10'3 (0-0.9); MONOCYTES % (AUTO) 8.4 % (2-12); NEUTROPHILS % (AUTO) 46.8 % (42-75); PLATELET COUNT 325 X10'3 (140-440); RED CELL DISTRIBUTION WIDTH 16.7 % (11.5-14.5); WHITE BLOOD COUNT 4.2 X10'3 (4.5-11.0)
[2023-05-21 04:52] LABS: ALANINE AMINOTRANSFERASE 26 U/L (12-78); ALBUMIN 2.6 G/DL (3.4-5.0); ALBUMIN/GLOBULIN RATIO 0.7 (1.1-1.5); ALKALINE PHOSPHATASE 73 IU/L (46-116); ANION GAP 11 (8-16); ASPARTATE AMINO TRANSFERASE 24 U/L (10-37); BILIRUBIN,TOTAL 0.1 MG/DL (0.1-1.0); BLOOD UREA NITROGEN 13 MG/DL (7-18); BUN/CREATININE RATIO 19.7 (10.0-20.0); CALCIUM 8.6 MG/DL (8.5-10.1); CHLORIDE 103 MMOL/L (99-107); CREATININE 0.66 MG/DL (0.40-0.90); GLUCOSE 79 MG/DL (70-104); POTASSIUM 3.3 MMOL/L (3.5-5.1); SODIUM 135 MMOL/L (135-145); TOTAL CARBON DIOXIDE 20.8 MMOL/L (24-32); TOTAL PROTEIN 6.1 G/DL (6.4-8.2); eCRCL 56 ML/MIN; eGFR 86 ML/MIN
[2023-05-21 05:00] VITALS: TEMP 98.3
[2023-05-21] MEDS ORDERED: potassium Cl 20 mEq SR tablet PO STA (06:02)
[2023-05-21] MEDS ORDERED: TRAM50TA2 PO (06:31)
[2023-05-21 07:05] VITALS: BP 143/76; PULSE 87; RESP 18; O2SAT 100
== END 2023-05-21 07:07 | disposition home or self-care (01) ==
LOC: ER 03:49
DX: G89.29 Other chronic pain (principal); M54.59 Other low back pain; Z87.81 Personal history of (healed) traumatic fracture; F32.A Depression, unspecified; Z79.899 Other long term (current) drug therapy
CPT/HCPCS: 36415; 72192; 80053; 85025; 99284

== ENCOUNTER 2023-12-17 17:09 | Inpatient (IN) | payer MEDICARE, MEDICAID ==
[~2023-12-17] VITALS: Ht 165.1 cm; Wt 48.2 kg
[2023-12-17 17:37] LABS: BASOPHILS % (AUTO) 0.1 % (0-1); EOSINOPHILS % (AUTO) 0 % (0-6); HEMATOCRIT 25.3 % (35.0-45.0); LYMPHOCYTES # (AUTO) 0.6 X10'3 (1.1-4.8); LYMPHOCYTES % (AUTO) 5.5 % (21-51); MEAN CORPUSCULAR HEMOGLOBIN 27.1 PG (27.0-31.0); MEAN CORPUSCULAR HGB CONC 31.8 g/dL (33.0-36.5); MEAN CORPUSCULAR VOLUME 85.3 FL (78-98); MEAN PLATELET VOLUME 6.8 FL (7.4-10.4); MONOCYTES # (AUTO) 0.3 X10'3 (0-0.9); MONOCYTES % (AUTO) 2.4 % (2-12); NEUTROPHILS # (AUTO) 10.9 X10'3 (1.8-7.7); PLATELET COUNT 276 X10'3 (140-440); RED BLOOD COUNT 2.97 X10'6 (4.20-5.60); RED CELL DISTRIBUTION WIDTH 18.3 % (11.5-14.5); WHITE BLOOD COUNT 11.8 X10'3 (4.5-11.0)
[2023-12-17 17:44] LABS: ALANINE AMINOTRANSFERASE 9 U/L (12-78); ALBUMIN 1.3 G/DL (3.4-5.0); ALBUMIN/GLOBULIN RATIO 0.3 (1.1-1.5); ALKALINE PHOSPHATASE 62 IU/L (46-116); ANION GAP 10 (8-16); ASPARTATE AMINO TRANSFERASE 13 U/L (10-37); BILIRUBIN,TOTAL 0.6 MG/DL (0.1-1.0); BLOOD UREA NITROGEN 10 MG/DL (7-18); BUN/CREATININE RATIO 10.9 (10.0-20.0); CALCIUM 7.5 MG/DL (8.5-10.1); CHLORIDE 103 MMOL/L (99-107); CREATININE 0.92 MG/DL (0.40-0.90); GLUCOSE 100 MG/DL (70-104); SODIUM 134 MMOL/L (135-145); TOTAL CARBON DIOXIDE 21.3 MMOL/L (24-32); TOTAL PROTEIN 5.2 G/DL (6.4-8.2); eCRCL 35 ML/MIN; eGFR 59 ML/MIN
[2023-12-17] MEDS: normal saline 1000ml 1,000 ML IV ONE ×4 (17:48→21:28)
[2023-12-17 17:52] LABS: POTASSIUM 2.5 MMOL/L (3.5-5.1)
[2023-12-17] MEDS ORDERED: Potassium Cl inj 40 MEQ in normal saline 250ml IV soln 250 ML IV ONE (18:25)
[2023-12-17] MEDS: potassium Cl 40MEQ/1/2NS 520ml 520 ML IV ONE (18:54)
[2023-12-17] MEDS ORDERED: potassium Cl 20 mEq SR tablet PO PRN ×2 (20:10)
[2023-12-17] MEDS ORDERED: mag hydrox/Alum hydrox/simeth 30ml oral suspension PO PRN (20:10)
[2023-12-17] MEDS ORDERED: potassium Cl 40MEQ/1/2NS 520ml 520 ML IV PRN (20:10)
[2023-12-17] MEDS ORDERED: acetaminophen 325mg tablet PO PRN (20:10)
[2023-12-17] MEDS ORDERED: ondansetron/PF 4mg/2ml inj IV PRN (20:10)
[2023-12-17] MEDS ORDERED: magnesium hydroxide 30ml (MOM) UD suspension PO PRN (20:10)
[2023-12-17] MEDS ORDERED: magnesium Cl slow-release 64mg tablet PO PRN (20:10)
[2023-12-17] MEDS ORDERED: morphine 2 MG/ML inj. syringe IV PRN (20:10)
[2023-12-17] MEDS: normal saline 1000ml 1,000 ML IV SCH (20:28)
[2023-12-17 23:17] LABS: ALBUMIN 1.2 G/DL (3.4-5.0); ANION GAP 9 (8-16); BLOOD UREA NITROGEN 9 MG/DL (7-18); BUN/CREATININE RATIO 11.8 (10.0-20.0); CALCIUM 6.8 MG/DL (8.5-10.1); CHLORIDE 109 MMOL/L (99-107); CREATININE 0.76 MG/DL (0.40-0.90); GLUCOSE 89 MG/DL (70-104); SODIUM 139 MMOL/L (135-145); TOTAL CARBON DIOXIDE 20.9 MMOL/L (24-32); eCRCL 42 ML/MIN; eGFR 73 ML/MIN
[2023-12-18] VITALS (36 sets, daily range): BP systolic 81–136; BP diastolic 39–84; PULSE 59–112; RESP 7–23; O2SAT 94–100
[2023-12-18] MEDS: NORepinephrine 8mg/ 250ml NS 250 ML IV PRN (00:40)
[2023-12-18] MEDS: piperacillin/tazo 3.375gm/50ml 50 ML IV SCH (00:46)
[2023-12-18 02:24] LABS: BILIRUBIN,URINE NEGATIVE (Neg); CLARITY,URINE CLEAR (Clear); COLOR,URINE YELLOW (Yellow); GLUCOSE, URINE NEGATIVE (Neg); KETONES,URINE NEGATIVE (Neg); LEUKOCYTE ESTERASE ,URINE NEGATIVE (Neg); NITRITES, URINE NEGATIVE (Neg); OCCULT BLOOD,URINE NEGATIVE (Neg); PROTEIN,URINE NEGATIVE (Neg); UROBILINOGEN,URINE 0.2 E.U/dL (0.2-1.0)
[2023-12-18 02:29] LABS: UA COLLECTION TYPE FOLEY CATH
[2023-12-18 02:44] LABS: URINE AMPHETAMINE SCREEN NEGATIVE (Neg); URINE BARBITUATE SCREEN NEGATIVE (Neg); URINE BENZODIAZEPINES SCREEN NEGATIVE (Neg); URINE CANNABINOID SCREEN NEGATIVE (Neg); URINE COCAINE SCREEN NEGATIVE (Neg); URINE METHADONE SCREEN NEGATIVE (Neg); URINE OPIATE SCREEN NEGATIVE (Neg); URINE PHENCYCLIDINE SCREEN NEGATIVE (Neg)
[2023-12-18] MEDS: haloperidol 5mg tablet PO ONE (03:13)
[2023-12-18 04:41] LABS: BASOPHILS # (AUTO) 0.2 X10'3 (0-0.2); BASOPHILS % (AUTO) 1.2 % (0-1); EOSINOPHILS % (AUTO) 0 % (0-6); HEMATOCRIT 24.6 % (35.0-45.0); HEMOGLOBIN 7.7 g/dl (12.0-16.0); LYMPHOCYTES # (AUTO) 0.7 X10'3 (1.1-4.8); LYMPHOCYTES % (AUTO) 4.5 % (21-51); MEAN CORPUSCULAR HGB CONC 31.4 g/dL (33.0-36.5); MEAN CORPUSCULAR VOLUME 86.1 FL (78-98); MEAN PLATELET VOLUME 6.7 FL (7.4-10.4); MONOCYTES # (AUTO) 0.5 X10'3 (0-0.9); MONOCYTES % (AUTO) 3.2 % (2-12); NEUTROPHILS # (AUTO) 13.8 X10'3 (1.8-7.7); NEUTROPHILS % (AUTO) 91.1 % (42-75); PLATELET COUNT 292 X10'3 (140-440); RED BLOOD COUNT 2.85 X10'6 (4.20-5.60); RED CELL DISTRIBUTION WIDTH 18.9 % (11.5-14.5); WHITE BLOOD COUNT 15.1 X10'3 (4.5-11.0)
[2023-12-18 04:52] LABS: APTT 33 SECONDS (22-32); INR 1.3 INR; PROTHROMBIN TIME 13.5 SECONDS (9.0-12.0)
[2023-12-18 05:07] LABS: ALANINE AMINOTRANSFERASE 12 U/L (12-78); ALBUMIN 1.2 G/DL (3.4-5.0); ALBUMIN/GLOBULIN RATIO 0.3 (1.1-1.5); ALKALINE PHOSPHATASE 59 IU/L (46-116); ANION GAP 15 (8-16); ASPARTATE AMINO TRANSFERASE 16 U/L (10-37); BILIRUBIN,TOTAL 0.6 MG/DL (0.1-1.0); BLOOD UREA NITROGEN 10 MG/DL (7-18); BUN/CREATININE RATIO 14.5 (10.0-20.0); CALCIUM 6.8 MG/DL (8.5-10.1); CHLORIDE 108 MMOL/L (99-107); CREATININE 0.69 MG/DL (0.40-0.90); FERRITIN 102 NG/ML (8-252); GLUCOSE 86 MG/DL (70-104); MAGNESIUM 1.3 MG/DL (1.5-2.4); PHOSPHORUS 2.5 MG/DL (2.3-4.5); POTASSIUM 3.3 MMOL/L (3.5-5.1); SODIUM 140 MMOL/L (135-145); TOTAL CARBON DIOXIDE 17.2 MMOL/L (24-32); eCRCL 47 ML/MIN; eGFR 82 ML/MIN
[2023-12-18 05:20] LABS: TOTAL CELLS COUNTED 100
[2023-12-18 05:21] LABS: ANISOCYTOSIS 2+; PLATELET ESTIMATE NORMAL
[2023-12-18 05:22] LABS: BURR CELLS FEW; ELLIPTOCYTES FEW; SCHISTOCYTES FEW
[2023-12-18 05:23] LABS: HYPOCHROMASIA 1+
[2023-12-18] MEDS: magnesium sulf-water 2g/50mL 50 ML IV PRN (05:49)
[2023-12-18] MEDS: potassium Cl 20mEq/100mL bag 100 ML IV PRN (06:03)
[2023-12-18 06:32] LABS: % IRON SATURATION 5 % (11-46); IRON 6 UG/DL (49-151); TOTAL IRON BINDING CAPACITY 124 UG/DL (259-388)
[2023-12-18] MEDS: acetaminophen 325mg tablet PO PRN (07:23)
[2023-12-18] MEDS: docusate sod 100mg capsule PO SCH (07:37)
[2023-12-18] MEDS: K and/or MAG REPLACEMENT MC SCH (08:00)
[2023-12-18] MEDS: ringers solution, lacted 1,000 ML IV SCH (11:00)
[2023-12-18] MEDS: pantoprazole 40 MG vial IV SCH (11:19)
[2023-12-18] MEDS: albumin (human) 25% 100ml IV 400 ML IV ONE (11:20)
[2023-12-18] MEDS: ringers solution, lacted 1,000 ML IV ONE ×2 (11:21→12:41)
[2023-12-18 11:44] LABS: ABG BASE EXCESS -8.7 mmol/L (-2.0-2.0); ABG HCO3 15.4 mmol/L (22.0-26.0); ABG OXYGEN SATURATION 97.8 % (94-97); ABG PCO2 (T) 25.2 mmHg (32.0-45.0); ABG PH (T) 7.398 (7.350-7.450); ALLEN'S TEST POSITIVE; FCOHb 0.3 % (0.0-3.9); FHHb 2.2 % (0.0-5.0); FMetHb 0.3 % (0.0-1.5); FO2Hb 97.2 % (94-97); MODE ROOM AIR; PATIENT TEMPERATURE 35.6; TOTAL HEMOGLOBIN 8.4 G/dl (12.0-16.0)
[2023-12-18] MEDS ORDERED: NO HOME MEDS (11:44)
[2023-12-18 11:45] LABS: MAGNESIUM 1.7 MG/DL (1.5-2.4); POTASSIUM 4.1 MMOL/L (3.5-5.1)
[2023-12-18] MEDS: albumin (human) 25% 100ml IV 300 ML IV ONE (12:41)
[2023-12-18] MEDS: HYDROcodone/acetaminophen 5mg/325mg tablet PO PRN (13:05)
[2023-12-18] MEDS: cholecalciferol (vitamin D3) 1,000 unit (25mcg) tablet PO SCH (14:24)
[2023-12-18] MEDS: MULTIVIT-MIN/FERROUS GLUCONATE 9 MG/15 ML LIQUID PO SCH (14:24)
[2023-12-18] MEDS: calcium carbonate 500mg tablet PO SCH ×2 (14:24→16:57)
[2023-12-18] MEDS: cyanocobalamin 500mcg tablet PO SCH (14:25)
[2023-12-18] MEDS: gabapentin 300mg capsule PO ONE (14:25)
[2023-12-18 14:47] LABS: FREE T4 (FREE THYROXINE) 1.08 NG/DL (0.73-1.40); THYROID STIMULATING HORMONE 1.25 ulU/ml (0.34-4.50)
[2023-12-18] MEDS: morphine 2 MG/ML inj. syringe IV PRN (15:44)
[2023-12-18] MEDS: ascorbic acid 500mg tablet PO SCH (19:46)
[2023-12-18] MEDS: FERROUS SULFATE 142 MG TABLET.ER (45mg elemental) PO SCH (19:46)
[2023-12-18] MEDS: enoxaparin 40mg/0.4ml syringe SQ SCH (19:47)
[2023-12-18] MEDS: vasopressin inj. 40 UNIT in dextrose 5%-water 50ml 38 ML IV SCH (23:53)
[2023-12-19] VITALS (26 sets, daily range): BP systolic 95–146; BP diastolic 47–95; PULSE 56–98; RESP 11–23; O2SAT 91–98
[2023-12-19 02:39] LABS: BASOPHILS % (AUTO) 0.3 % (0-1); EOSINOPHILS # (AUTO) 0.2 X10'3 (0-0.9); EOSINOPHILS % (AUTO) 1.2 % (0-6); HEMOGLOBIN 7.1 g/dl (12.0-16.0); LYMPHOCYTES # (AUTO) 1.1 X10'3 (1.1-4.8); MEAN CORPUSCULAR HEMOGLOBIN 27.1 PG (27.0-31.0); MEAN CORPUSCULAR HGB CONC 32.1 g/dL (33.0-36.5); MEAN CORPUSCULAR VOLUME 84.6 FL (78-98); MONOCYTES # (AUTO) 0.3 X10'3 (0-0.9); MONOCYTES % (AUTO) 2.3 % (2-12); NEUTROPHILS # (AUTO) 10.7 X10'3 (1.8-7.7); NEUTROPHILS % (AUTO) 87.2 % (42-75); PLATELET COUNT 245 X10'3 (140-440); RED CELL DISTRIBUTION WIDTH 19.5 % (11.5-14.5); WHITE BLOOD COUNT 12.3 X10'3 (4.5-11.0)
[2023-12-19 02:51] LABS: APTT 47 SECONDS (22-32); INR 1.4 INR; PROTHROMBIN TIME 14.5 SECONDS (9.0-12.0)
[2023-12-19 02:54] LABS: ALANINE AMINOTRANSFERASE 11 U/L (12-78); ALBUMIN 2.2 G/DL (3.4-5.0); ALBUMIN/GLOBULIN RATIO 0.9 (1.1-1.5); ALKALINE PHOSPHATASE 50 IU/L (46-116); ANION GAP 7 (8-16); ASPARTATE AMINO TRANSFERASE 12 U/L (10-37); BILIRUBIN,TOTAL 0.5 MG/DL (0.1-1.0); BLOOD UREA NITROGEN 8 MG/DL (7-18); BUN/CREATININE RATIO 13.1 (10.0-20.0); CALCIUM 7.4 MG/DL (8.5-10.1); CHLORIDE 108 MMOL/L (99-107); CREATININE 0.61 MG/DL (0.40-0.90); GLUCOSE 120 MG/DL (70-104); MAGNESIUM 1.2 MG/DL (1.5-2.4); PHOSPHORUS 1.8 MG/DL (2.3-4.5); POTASSIUM 3.4 MMOL/L (3.5-5.1); SODIUM 135 MMOL/L (135-145); TOTAL CARBON DIOXIDE 20.5 MMOL/L (24-32); TOTAL PROTEIN 4.6 G/DL (6.4-8.2); eCRCL 53 ML/MIN; eGFR > 90 ML/MIN
[2023-12-19] MEDS: magnesium sulf-water 4G/100mL 100 ML IV PRN (06:07)
[2023-12-19 06:37] LABS: C DIFF ANTIGEN NEGATIVE (NEGATIVE); C DIFF SPECIMEN=DIARRHEA? ACCEPTABLE; C DIFFICILE TOXINS A&B NEGATIVE (Neg)
[2023-12-19] MEDS: MULTIVIT-MIN/FERROUS GLUCONATE 9 MG/15 ML LIQUID PO SCH (07:55)
[2023-12-19] MEDS ORDERED: sodium phosphate inj. 30 MMOL in dextrose 5%-water 250 ML IV PRN (09:20)
[2023-12-19] MEDS: sodium phosphate inj. 15 MMOL in dextrose 5%-water 250 ML IV PRN (10:44)
[2023-12-19] MEDS: fludrocortisone acetate 0.1mg tablet PO SCH (10:48)
[2023-12-19] MEDS: dronabinol 2.5mg capsule PO SCH (11:55)
[2023-12-19] MEDS: hydrocortisone sod succ/PF 100mg/2ml inj. IV SCH (11:56)
[2023-12-19] MEDS: lactose-reduced food (Ensure Enlive) - 237ml bottle PO SCH (13:00)
[2023-12-19 19:28] LABS: MAGNESIUM 2.6 MG/DL (1.5-2.4); PHOSPHORUS 2.5 MG/DL (2.3-4.5); POTASSIUM 4.4 MMOL/L (3.5-5.1)
[2023-12-19] MEDS: MICONAZOLE NITRATE 100 MG VG ONE (20:00)
[2023-12-19] MEDS: gabapentin 300mg capsule PO PRN (21:35)
[2023-12-20] VITALS (18 sets, daily range): BP systolic 111–155; BP diastolic 55–80; PULSE 64–99; RESP 13–23; TEMP 97.6; O2SAT 92–99
[2023-12-20 03:04] LABS: BASOPHILS % (AUTO) 0.3 % (0-1); EOSINOPHILS % (AUTO) 0.1 % (0-6); HEMATOCRIT 23.9 % (35.0-45.0); HEMOGLOBIN 7.8 g/dl (12.0-16.0); LYMPHOCYTES # (AUTO) 0.4 X10'3 (1.1-4.8); LYMPHOCYTES % (AUTO) 7.5 % (21-51); MEAN CORPUSCULAR HEMOGLOBIN 27.7 PG (27.0-31.0); MEAN CORPUSCULAR HGB CONC 32.8 g/dL (33.0-36.5); MEAN CORPUSCULAR VOLUME 84.6 FL (78-98); MEAN PLATELET VOLUME 7.7 FL (7.4-10.4); MONOCYTES # (AUTO) 0.1 X10'3 (0-0.9); MONOCYTES % (AUTO) 2.5 % (2-12); NEUTROPHILS # (AUTO) 4.7 X10'3 (1.8-7.7); NEUTROPHILS % (AUTO) 89.6 % (42-75); PLATELET COUNT 223 X10'3 (140-440); RED BLOOD COUNT 2.82 X10'6 (4.20-5.60); RED CELL DISTRIBUTION WIDTH 19.3 % (11.5-14.5); WHITE BLOOD COUNT 5.2 X10'3 (4.5-11.0)
[2023-12-20 03:05] LABS: ALBUMIN 2.2 G/DL (3.4-5.0); ALBUMIN/GLOBULIN RATIO 0.7 (1.1-1.5); ALKALINE PHOSPHATASE 60 IU/L (46-116); ANION GAP 10 (8-16); ASPARTATE AMINO TRANSFERASE 13 U/L (10-37); BILIRUBIN,TOTAL 0.4 MG/DL (0.1-1.0); BLOOD UREA NITROGEN 4 MG/DL (7-18); BUN/CREATININE RATIO 5.3 (10.0-20.0); CALCIUM 8.1 MG/DL (8.5-10.1); CHLORIDE 110 MMOL/L (99-107); CREATININE 0.75 MG/DL (0.40-0.90); GLUCOSE 169 MG/DL (70-104); MAGNESIUM 2.3 MG/DL (1.5-2.4); PHOSPHORUS 2.5 MG/DL (2.3-4.5); POTASSIUM 4.1 MMOL/L (3.5-5.1); SODIUM 139 MMOL/L (135-145); TOTAL CARBON DIOXIDE 19.3 MMOL/L (24-32); TOTAL PROTEIN 5.2 G/DL (6.4-8.2); eCRCL 43 ML/MIN; eGFR 74 ML/MIN
[2023-12-20 03:14] LABS: APTT 39 SECONDS (22-32); INR 1.1 INR; PROTHROMBIN TIME 11.5 SECONDS (9.0-12.0)
[2023-12-20 03:16] LABS: ALANINE AMINOTRANSFERASE 15 U/L (12-78)
[2023-12-20 04:10] LABS: ANISOCYTOSIS 2+; PLATELET ESTIMATE NORMAL
[2023-12-20 04:14] LABS: BURR CELLS 2+; HYPOCHROMASIA 1+; SCHISTOCYTES FEW
[2023-12-20 06:00] LABS: FOLATE SERUM(FOLIC) 11.5 ng/mL (>3.0)
[2023-12-20] MEDS: hydrocortisone sod succ/PF 100mg/2ml inj. IV SCH (12:15)
[2023-12-20] MEDS: nicotine 14mg patch - 24hr TD SCH (12:17)
[2023-12-21 02:00] VITALS: BP 99/52; PULSE 78; RESP 17; TEMP 97.7; O2SAT 97
[2023-12-21 06:00] VITALS: BP 121/62; PULSE 67; RESP 15; TEMP 97.1; O2SAT 97
[2023-12-21 07:04] LABS: BASOPHILS % (AUTO) 0.1 % (0-1); EOSINOPHILS % (AUTO) 0 % (0-6); HEMATOCRIT 26.2 % (35.0-45.0); HEMOGLOBIN 8.3 g/dl (12.0-16.0); LYMPHOCYTES # (AUTO) 0.7 X10'3 (1.1-4.8); LYMPHOCYTES % (AUTO) 14.2 % (21-51); MEAN CORPUSCULAR HEMOGLOBIN 27.9 PG (27.0-31.0); MEAN CORPUSCULAR HGB CONC 31.7 g/dL (33.0-36.5); MEAN CORPUSCULAR VOLUME 88.1 FL (78-98); MEAN PLATELET VOLUME 7.6 FL (7.4-10.4); MONOCYTES # (AUTO) 0.2 X10'3 (0-0.9); MONOCYTES % (AUTO) 4.5 % (2-12); NEUTROPHILS # (AUTO) 4.2 X10'3 (1.8-7.7); NEUTROPHILS % (AUTO) 81.2 % (42-75); PLATELET COUNT 212 X10'3 (140-440); RED BLOOD COUNT 2.97 X10'6 (4.20-5.60); RED CELL DISTRIBUTION WIDTH 20.3 % (11.5-14.5); WHITE BLOOD COUNT 5.2 X10'3 (4.5-11.0)
[2023-12-21 07:11] LABS: PROTHROMBIN TIME 11.2 SECONDS (9.0-12.0)
[2023-12-21 07:33] LABS: ALANINE AMINOTRANSFERASE 11 U/L (12-78); ALBUMIN 1.9 G/DL (3.4-5.0); ALBUMIN/GLOBULIN RATIO 0.6 (1.1-1.5); ALKALINE PHOSPHATASE 49 IU/L (46-116); ANION GAP 10 (8-16); ASPARTATE AMINO TRANSFERASE 12 U/L (10-37); BILIRUBIN,TOTAL 0.2 MG/DL (0.1-1.0); BLOOD UREA NITROGEN 4 MG/DL (7-18); BUN/CREATININE RATIO 6.5 (10.0-20.0); CALCIUM 8.5 MG/DL (8.5-10.1); CHLORIDE 115 MMOL/L (99-107); CREATININE 0.62 MG/DL (0.40-0.90); GLUCOSE 125 MG/DL (70-104); PHOSPHORUS 3.5 MG/DL (2.3-4.5); POTASSIUM 4.1 MMOL/L (3.5-5.1); SODIUM 144 MMOL/L (135-145); TOTAL CARBON DIOXIDE 19.1 MMOL/L (24-32); TOTAL PROTEIN 4.9 G/DL (6.4-8.2); eCRCL 55 ML/MIN; eGFR > 90 ML/MIN
[2023-12-21 07:44] LABS: ANISOCYTOSIS 3+; BURR CELLS 1+; PLATELET ESTIMATE NORMAL; SCHISTOCYTES FEW
[2023-12-21 11:00] VITALS: BP 124/67; PULSE 81; RESP 16; TEMP 97.6; O2SAT 99
[2023-12-21 15:00] VITALS: BP 113/61; PULSE 86; RESP 18; TEMP 97.4; O2SAT 98
[2023-12-21 18:00] VITALS: BP 132/64; PULSE 74; RESP 18; TEMP 97.4; O2SAT 98
[2023-12-21 22:00] VITALS: BP 126/59; PULSE 71; RESP 16; TEMP 97.7; O2SAT 97
[2023-12-21] MEDS: HYDROcodone/acetaminophen 10/325mg tab PO PRN (22:05)
[2023-12-22 02:00] VITALS: BP 124/50; PULSE 61; RESP 18; TEMP 97.4; O2SAT 96
[2023-12-22 06:00] VITALS: BP 156/85; PULSE 108; RESP 16; TEMP 97.2; O2SAT 98
[2023-12-22] MEDS: pantoprazole 40mg Tablet.DR PO SCH (08:32)
[2023-12-22 08:40] LABS: BASOPHILS % (AUTO) 0.1 % (0-1); EOSINOPHILS % (AUTO) 0 % (0-6); HEMATOCRIT 29.3 % (35.0-45.0); HEMOGLOBIN 9.4 g/dl (12.0-16.0); LYMPHOCYTES # (AUTO) 0.7 X10'3 (1.1-4.8); LYMPHOCYTES % (AUTO) 13.5 % (21-51); MEAN CORPUSCULAR HEMOGLOBIN 27.4 PG (27.0-31.0); MEAN CORPUSCULAR HGB CONC 32.1 g/dL (33.0-36.5); MEAN CORPUSCULAR VOLUME 85.5 FL (78-98); MEAN PLATELET VOLUME 7.6 FL (7.4-10.4); MONOCYTES # (AUTO) 0.2 X10'3 (0-0.9); MONOCYTES % (AUTO) 4.4 % (2-12); NEUTROPHILS # (AUTO) 4.5 X10'3 (1.8-7.7); PLATELET COUNT 247 X10'3 (140-440); RED BLOOD COUNT 3.43 X10'6 (4.20-5.60); RED CELL DISTRIBUTION WIDTH 19.7 % (11.5-14.5); WHITE BLOOD COUNT 5.5 X10'3 (4.5-11.0)
[2023-12-22 08:50] LABS: PROTHROMBIN TIME 10.7 SECONDS (9.0-12.0)
[2023-12-22 08:55] LABS: ALANINE AMINOTRANSFERASE 19 U/L (12-78); ALBUMIN 2.3 G/DL (3.4-5.0); ALBUMIN/GLOBULIN RATIO 0.7 (1.1-1.5); ALKALINE PHOSPHATASE 53 IU/L (46-116); ANION GAP 11 (8-16); ASPARTATE AMINO TRANSFERASE 25 U/L (10-37); BILIRUBIN,TOTAL 0.4 MG/DL (0.1-1.0); BLOOD UREA NITROGEN 8 MG/DL (7-18); BUN/CREATININE RATIO 10.8 (10.0-20.0); CALCIUM 8.8 MG/DL (8.5-10.1); CHLORIDE 111 MMOL/L (99-107); CREATININE 0.74 MG/DL (0.40-0.90); GLUCOSE 116 MG/DL (70-104); MAGNESIUM 1.7 MG/DL (1.5-2.4); PHOSPHORUS 3.6 MG/DL (2.3-4.5); POTASSIUM 3.6 MMOL/L (3.5-5.1); SODIUM 145 MMOL/L (135-145); TOTAL CARBON DIOXIDE 23.3 MMOL/L (24-32); TOTAL PROTEIN 5.7 G/DL (6.4-8.2); eCRCL 46 ML/MIN; eGFR 76 ML/MIN
[2023-12-22 09:15] LABS: PLATELET ESTIMATE NORMAL; POIKILOCYTOSIS FEW
[2023-12-22 09:16] LABS: ANISOCYTOSIS 3+; MICROCYTOSIS 1+; TARGET CELLS FEW
[2023-12-22 16:00] VITALS: BP 153/74; PULSE 97; RESP 16; TEMP 97.3; O2SAT 96
[2023-12-22 18:00] VITALS: BP 145/72; PULSE 70; RESP 16; TEMP 97.5; O2SAT 95
[2023-12-22 22:00] VITALS: BP 144/69; PULSE 80; RESP 16; TEMP 97; O2SAT 93
[2023-12-23 02:00] VITALS: BP 134/70; PULSE 82; RESP 15; TEMP 97.2; O2SAT 95
[2023-12-23 06:01] VITALS: BP 151/79; PULSE 72; RESP 14; TEMP 97; O2SAT 95
[2023-12-23 11:00] VITALS: BP 141/63; PULSE 53; RESP 12; TEMP 97.4; O2SAT 97
[2023-12-23 17:00] VITALS: PULSE 82; RESP 16; TEMP 98.5
[2023-12-23 18:00] VITALS: BP 167/87; PULSE 98; RESP 18; TEMP 98; O2SAT 94
[2023-12-23] MEDS: gabapentin 300mg capsule PO PRN (20:28)
[2023-12-23 22:00] VITALS: BP 154/76; PULSE 89; RESP 15; TEMP 97.7; O2SAT 95
[2023-12-24] MEDS: diatr meglu/diatrizoate 30ml oral sol.-(3 dose) bottle PO SCH (01:26)
[2023-12-24 02:00] VITALS: BP 150/77; PULSE 88; RESP 16; TEMP 98; O2SAT 96
[2023-12-24] MEDS ORDERED: diatr meglu/diatrizoate 30ml oral sol.-(3 dose) bottle PO SCH (03:00)
[2023-12-24 06:00] VITALS: BP 135/67; PULSE 89; RESP 16; TEMP 98.1; O2SAT 96
[2023-12-24 08:02] LABS: BASOPHILS % (AUTO) 0 % (0-1); EOSINOPHILS % (AUTO) 0 % (0-6); HEMOGLOBIN 8.3 g/dl (12.0-16.0); LYMPHOCYTES # (AUTO) 0.9 X10'3 (1.1-4.8); LYMPHOCYTES % (AUTO) 15.2 % (21-51); MEAN CORPUSCULAR HEMOGLOBIN 27.3 PG (27.0-31.0); MEAN CORPUSCULAR HGB CONC 31.9 g/dL (33.0-36.5); MEAN CORPUSCULAR VOLUME 85.7 FL (78-98); MEAN PLATELET VOLUME 7.4 FL (7.4-10.4); MONOCYTES # (AUTO) 0.4 X10'3 (0-0.9); MONOCYTES % (AUTO) 6.2 % (2-12); NEUTROPHILS # (AUTO) 4.8 X10'3 (1.8-7.7); NEUTROPHILS % (AUTO) 78.6 % (42-75); PLATELET COUNT 249 X10'3 (140-440); RED BLOOD COUNT 3.04 X10'6 (4.20-5.60); RED CELL DISTRIBUTION WIDTH 19.6 % (11.5-14.5); WHITE BLOOD COUNT 6.1 X10'3 (4.5-11.0)
[2023-12-24 08:08] LABS: ALANINE AMINOTRANSFERASE 23 U/L (12-78); ALBUMIN 1.9 G/DL (3.4-5.0); ALBUMIN/GLOBULIN RATIO 0.6 (1.1-1.5); ALKALINE PHOSPHATASE 39 IU/L (46-116); ANION GAP 8 (8-16); ASPARTATE AMINO TRANSFERASE 20 U/L (10-37); BILIRUBIN,TOTAL 0.2 MG/DL (0.1-1.0); BLOOD UREA NITROGEN 10 MG/DL (7-18); BUN/CREATININE RATIO 14.3 (10.0-20.0); CALCIUM 8.3 MG/DL (8.5-10.1); CHLORIDE 112 MMOL/L (99-107); GLUCOSE 112 MG/DL (70-104); SODIUM 146 MMOL/L (135-145); TOTAL CARBON DIOXIDE 26.1 MMOL/L (24-32); TOTAL PROTEIN 4.9 G/DL (6.4-8.2); eCRCL 49 ML/MIN; eGFR 81 ML/MIN
[2023-12-24] MEDS ORDERED: potassium Cl 20 mEq SR tablet PO PRN ×3 (08:25→15:10)
[2023-12-24] MEDS ORDERED: magnesium Cl slow-release 64mg tablet PO PRN (08:25)
[2023-12-24] MEDS ORDERED: magnesium sulf-water 2g/50mL 50 ML IV PRN (08:25)
[2023-12-24] MEDS ORDERED: magnesium sulf-water 4G/100mL 100 ML IV PRN (08:25)
[2023-12-24] MEDS ORDERED: potassium Cl 40MEQ/1/2NS 520ml 520 ML IV PRN ×2 (08:25→15:10)
[2023-12-24] MEDS: carVEDilol 3.125mg tablet PO SCH (08:58)
[2023-12-24] MEDS ORDERED: iohexol 300mg/ml 100ml inj. ONE (09:52)
[2023-12-24 11:00] VITALS: BP 161/74; PULSE 82; RESP 16; TEMP 98.1; O2SAT 96
[2023-12-24 11:01] VITALS: BP 156/78
[2023-12-24] MEDS ORDERED: dextrose 5%-1/4 NS 250ml IV soln IV SCH (11:45)
[2023-12-24] MEDS: dextrose 5%-1/4 normal saline 1,000 ML IV SCH (12:56)
[2023-12-24] MEDS: potassium Cl 20 mEq SR tablet PO PRN (17:26)
[2023-12-24] MEDS ORDERED: K and/or MAG REPLACEMENT MC SCH ×2 (20:00)
== END 2023-12-24 17:51 | DRG 871 ==
LOC: ER 17:10 → ED HOLD 20:16 → EDBEDREQTM 12-18 03:16 → ICU 2S 12-18 04:22 → PCU 3S 12-20 17:51
PROVIDERS: ADMIT Surgery Surgical Critical Care; ATTEND Family Medicine
PROC: 02HV33Z Insertion of Infusion Device into Superior Vena Cava, Percutaneous Approach (ICD-10-PCS; 2023-12-18)
PROC: B548ZZA Ultrasonography of Superior Vena Cava, Guidance (ICD-10-PCS; 2023-12-18)
PROC: BW251ZZ Computerized Tomography (CT Scan) of Chest, Abdomen and Pelvis using Low Osmolar Contrast (ICD-10-PCS; principal; 2023-12-24)
DX: A41.9 Sepsis, unspecified organism (principal); E43 Unspecified severe protein-calorie malnutrition; R65.21 Severe sepsis with septic shock; E87.20 Acidosis, unspecified; Z68.1 Body mass index [BMI] 19.9 or less, adult; I50.20 Unspecified systolic (congestive) heart failure; T67.5XXA Heat exhaustion, unspecified, initial encounter; E86.0 Dehydration; E87.6 Hypokalemia; F32.A Depression, unspecified; G62.9 Polyneuropathy, unspecified; Z66 Do not resuscitate; M19.09 Primary osteoarthritis, other specified site; M79.7 Fibromyalgia; I11.0 Hypertensive heart disease with heart failure; M54.9 Dorsalgia, unspecified; G89.4 Chronic pain syndrome; F17.210 Nicotine dependence, cigarettes, uncomplicated; M25.551 Pain in right hip; D50.9 Iron deficiency anemia, unspecified; E66.9 Obesity, unspecified; E83.42 Hypomagnesemia; X30.XXXA Exposure to excessive natural heat, initial encounter; Z98.84 Bariatric surgery status; Z86.73 Personal history of transient ischemic attack (TIA), and cerebral infarction without residual deficits; Z95.1 Presence of aortocoronary bypass graft
CPT/HCPCS: 36415; 36600; 70450; 71045; 71260; 73521; 74176; 74177; 80048; 80053; 80305; 81003; 82607; 82728; 82746; 82803; 82948; 83540; 83550; 83605; 83735; 84100; 84132; 84145; 84439; 84443; 84484; 85007; 85008; 85018; 85025; 85610; 85730; 87040; 87081; 87324; 87449; 93005; 93308; 96365; 97116; 97161; 97530; 99291; A4333; A5200; A6213; A6258; A6449; C1751; C1758; G0378; J1650; J1720; J2270; J2470; J2543; J3475; J3480; J3490; J7030; J7040; J7042; J7060; J7120; P9047; Q0167; Q9963; Q9967

== ENCOUNTER 2024-02-07 13:56 | Inpatient (IN) | payer MEDICARE, MEDICAID ==
[~2024-02-07] VITALS: Ht 162.6 cm; Wt 68.7 kg
[~2024-02-07 13:56] MED LIST changes: -ASPI-611 PO; -CHOL500050 PO; -CYAN500T71 PO; -FURO20TA4 PO; -GABA-530 PO; -MELO-102 PO; +NO HOME MEDS; -POTA-206 PO; -TRAM50TA2 PO
[2024-02-07] MEDS: ondansetron/PF 4mg/2ml inj IV ONE (14:30)
[2024-02-07] MEDS: morphine 4 MG/ML inj SYRINge IV ONE ×2 (14:31→15:42)
[2024-02-07 15:04] LABS: BASOPHILS % (AUTO) 0.7 % (0-1); EOSINOPHILS # (AUTO) 0.2 X10'3 (0-0.9); EOSINOPHILS % (AUTO) 3.6 % (0-6); HEMATOCRIT 29.3 % (35.0-45.0); HEMOGLOBIN 9.7 g/dl (12.0-16.0); LYMPHOCYTES # (AUTO) 1.6 X10'3 (1.1-4.8); LYMPHOCYTES % (AUTO) 25.8 % (21-51); MEAN CORPUSCULAR HEMOGLOBIN 29.8 PG (27.0-31.0); MEAN CORPUSCULAR VOLUME 90.4 FL (78-98); MEAN PLATELET VOLUME 7.6 FL (7.4-10.4); MONOCYTES # (AUTO) 0.8 X10'3 (0-0.9); MONOCYTES % (AUTO) 12.6 % (2-12); NEUTROPHILS # (AUTO) 3.5 X10'3 (1.8-7.7); NEUTROPHILS % (AUTO) 57.3 % (42-75); PLATELET COUNT 206 X10'3 (140-440); RED BLOOD COUNT 3.24 X10'6 (4.20-5.60); RED CELL DISTRIBUTION WIDTH 17.8 % (11.5-14.5); WHITE BLOOD COUNT 6.1 X10'3 (4.5-11.0)
[2024-02-07 15:12] LABS: ALBUMIN 2.6 G/DL (3.4-5.0); ANION GAP 11 (8-16); BLOOD UREA NITROGEN 10 MG/DL (7-18); BUN/CREATININE RATIO 17.2 (10.0-20.0); CALCIUM 8.9 MG/DL (8.5-10.1); CHLORIDE 108 MMOL/L (99-107); CREATININE 0.58 MG/DL (0.40-0.90); GLUCOSE 78 MG/DL (70-104); POTASSIUM 3.3 MMOL/L (3.5-5.1); SODIUM 143 MMOL/L (135-145); TOTAL CARBON DIOXIDE 24.1 MMOL/L (24-32); eCRCL 58 ML/MIN; eGFR > 90 ML/MIN
[2024-02-07 15:14] LABS: INR 1.1 INR; PROTHROMBIN TIME 11.2 SECONDS (9.0-12.0)
[2024-02-07] MEDS ORDERED: acetaminophen 325mg tablet PO PRN ×2 (16:55)
[2024-02-07] MEDS ORDERED: bisacodyl 10mg suppository rectal RC PRN (16:55)
[2024-02-07] MEDS ORDERED: albuterol 2.5 MG/3 ML nebule NEB PRN (16:55)
[2024-02-07] MEDS ORDERED: albuterol 1.25 MG/3 ML (1/2 strength) nebule NEB PRN (16:55)
[2024-02-07] MEDS ORDERED: potassium Cl 20 mEq SR tablet PO PRN ×2 (16:55)
[2024-02-07] MEDS ORDERED: mag hydrox/Alum hydrox/simeth 30ml oral suspension PO PRN (16:55)
[2024-02-07 17:29] LABS: BILIRUBIN,URINE MODERATE (Neg); CLARITY,URINE CLEAR (Clear); COLOR,URINE YELLOW (Yellow); GLUCOSE, URINE NEGATIVE (Neg); KETONES,URINE 15 mg/dl (Neg); LEUKOCYTE ESTERASE ,URINE NEGATIVE (Neg); NITRITES, URINE NEGATIVE (Neg); OCCULT BLOOD,URINE NEGATIVE (Neg); PROTEIN,URINE NEGATIVE (Neg); UROBILINOGEN,URINE 0.2 E.U/dL (0.2-1.0)
[2024-02-07 17:36] LABS: UA COLLECTION TYPE FOLEY CATH
[2024-02-07] MEDS: sodium chloride 0.45% 1,000 ML IV SCH (17:49)
[2024-02-07] MEDS: HYDROmorphone inj. 0.5 MG/0.5 ML DISP.SYRIN IV PRN (17:50)
[2024-02-07 17:57] VITALS: PULSE 50; PULSE 56; RESP 20; O2SAT 57; O2SAT 96; O2SAT 99
[2024-02-07 17:59] LABS: URINE AMPHETAMINE SCREEN NEGATIVE (Neg); URINE BARBITUATE SCREEN NEGATIVE (Neg); URINE BENZODIAZEPINES SCREEN NEGATIVE (Neg); URINE CANNABINOID SCREEN NEGATIVE (Neg); URINE COCAINE SCREEN NEGATIVE (Neg); URINE METHADONE SCREEN NEGATIVE (Neg); URINE OPIATE SCREEN POSITIVE (Neg); URINE PHENCYCLIDINE SCREEN NEGATIVE (Neg)
[2024-02-07 21:15] VITALS: BP 109/62; PULSE 61; RESP 18; TEMP 97.7; O2SAT 97
[2024-02-07 22:00] VITALS: RESP 18; O2SAT 96
[2024-02-07] MEDS: docusate sod 100mg capsule PO SCH (22:44)
[2024-02-07] MEDS: K and/or MAG REPLACEMENT MC SCH (22:52)
[2024-02-07] MEDS: potassium Cl 40MEQ/1/2NS 520ml 520 ML IV PRN (23:58)
[2024-02-08] VITALS (22 sets, daily range): BP systolic 106–133; BP diastolic 48–66; PULSE 53–82; RESP 12–17; TEMP 97.4–98.2; O2SAT 94–100
[2024-02-08 07:12] LABS: BASOPHILS % (AUTO) 0.3 % (0-1); EOSINOPHILS # (AUTO) 0.5 X10'3 (0-0.9); EOSINOPHILS % (AUTO) 6.4 % (0-6); HEMATOCRIT 30.1 % (35.0-45.0); HEMOGLOBIN 9.6 g/dl (12.0-16.0); LYMPHOCYTES # (AUTO) 1.5 X10'3 (1.1-4.8); LYMPHOCYTES % (AUTO) 20.4 % (21-51); MEAN CORPUSCULAR HEMOGLOBIN 29.3 PG (27.0-31.0); MEAN CORPUSCULAR HGB CONC 32.1 g/dL (33.0-36.5); MEAN CORPUSCULAR VOLUME 91.4 FL (78-98); MEAN PLATELET VOLUME 7.8 FL (7.4-10.4); MONOCYTES # (AUTO) 0.8 X10'3 (0-0.9); MONOCYTES % (AUTO) 10.6 % (2-12); NEUTROPHILS # (AUTO) 4.5 X10'3 (1.8-7.7); NEUTROPHILS % (AUTO) 62.3 % (42-75); PLATELET COUNT 201 X10'3 (140-440); RED BLOOD COUNT 3.29 X10'6 (4.20-5.60); RED CELL DISTRIBUTION WIDTH 17.8 % (11.5-14.5); WHITE BLOOD COUNT 7.1 X10'3 (4.5-11.0)
[2024-02-08 07:29] LABS: ALANINE AMINOTRANSFERASE 25 U/L (12-78); ALBUMIN 2.4 G/DL (3.4-5.0); ALBUMIN/GLOBULIN RATIO 0.7 (1.1-1.5); ALKALINE PHOSPHATASE 72 IU/L (46-116); ANION GAP 9 (8-16); ASPARTATE AMINO TRANSFERASE 15 U/L (10-37); BILIRUBIN,TOTAL 0.4 MG/DL (0.1-1.0); BLOOD UREA NITROGEN 10 MG/DL (7-18); BUN/CREATININE RATIO 14.3 (10.0-20.0); CALCIUM 8.1 MG/DL (8.5-10.1); CHLORIDE 107 MMOL/L (99-107); GLUCOSE 100 MG/DL (70-104); MAGNESIUM 1.4 MG/DL (1.5-2.4); SODIUM 142 MMOL/L (135-145); TOTAL CARBON DIOXIDE 26.4 MMOL/L (24-32); TOTAL PROTEIN 5.9 G/DL (6.4-8.2); eCRCL 48 ML/MIN; eGFR 81 ML/MIN
[2024-02-08] MEDS ORDERED: acetaminophen 1,000mg/100ml IV 100 ML IV ONE (08:00)
[2024-02-08] MEDS ORDERED: ondansetron/PF 4mg/2ml inj IV PRN (08:00)
[2024-02-08] MEDS ORDERED: morphine 2 MG/ML inj. syringe IV PRN (08:00)
[2024-02-08] MEDS ORDERED: meperidine/PF 25mg/ml syringe IV PRN ×2 (08:00)
[2024-02-08] MEDS ORDERED: proCHLORperazine 10 MG/2 ml inj IV PRN (08:00)
[2024-02-08] MEDS ORDERED: labetalol 20mg/4ml (5mg/ml) syringe IV PRN (08:00)
[2024-02-08] MEDS ORDERED: hydrALAZINE 20mg/ml inj. IV PRN (08:00)
[2024-02-08] MEDS ORDERED: midazolam 1 mg/ML 2ml injection ONE (08:19)
[2024-02-08] MEDS: ceFAZolin 1000mg inj ONE (09:30)
[2024-02-08] MEDS ORDERED: propofol inj 20 ML IV ONE ×4 (09:48→10:46)
[2024-02-08] MEDS ORDERED: ROPIVAcaine 0.5% (5mg/ml) 30ml vial ONE (09:49)
[2024-02-08] MEDS ORDERED: ceFAZolin 1000mg inj ONE ×2 (09:49)
[2024-02-08] MEDS ORDERED: dexamethasone sod phosphate 4mg/ml inj. ONE (09:49)
[2024-02-08] MEDS ORDERED: ePHEDrine 50MG/ML INJ. ONE (09:50)
[2024-02-08] MEDS: vancomycin 1,000mg inj ONE (10:05)
[2024-02-08] MEDS ORDERED: vancomycin 1,000mg inj ONE (10:09)
[2024-02-08] MEDS: ceFAZolin 1000mg inj IR ONE (10:16)
[2024-02-08] MEDS: tranexamic acid 100mg/ml inj. ONE (10:45)
[2024-02-08] MEDS: vancomycin 1,000mg inj IVT ONE (11:28)
[2024-02-08] MEDS ORDERED: neomycin sulfate/bacitracin zinc/polymixin B UD packet TP ONE ×3 (11:44)
[2024-02-08] MEDS: bacitracin 15gm ointment TP ONE (11:44)
[2024-02-08] MEDS: ringers solution, lacted 1,000 ML IV SCH (11:57)
[2024-02-08] MEDS: meperidine/PF 25mg/ml syringe IV PRN (12:01)
[2024-02-08] MEDS: acetaminophen 1,000mg/100ml IV 100 ML IV ONE (12:33)
[2024-02-08] MEDS: morphine 4 MG/ML inj SYRINge IV PRN (12:38)
[2024-02-08] MEDS: cloNIDine hcl/PF 100mcg/ml inj ONE (13:46)
[2024-02-08] MEDS: HYDROcodone/acetaminophen 5mg/325mg tablet PO PRN (14:00)
[2024-02-08] MEDS: magnesium sulf-water 4G/100mL 100 ML IV PRN (14:03)
[2024-02-08] MEDS: nicotine 7mg patch - 24hr TD SCH (16:00)
[2024-02-08] MEDS: HYDROmorphone/PF 0.2 MG/ML SYRINGE IV PRN (16:39)
[2024-02-08] MEDS: HYDROcodone/acetaminophen 10/325mg tab PO PRN (18:42)
[2024-02-08] MEDS: magnesium sulf-water 2g/50mL 50 ML IV PRN (20:52)
[2024-02-08] MEDS: LORazepam 2 mg/ml vial IV PRN (22:12)
[2024-02-08] MEDS: nicotine 7mg patch - 24hr TD ONE (22:12)
[2024-02-09] VITALS (7 sets, daily range): BP systolic 122–140; BP diastolic 59–76; PULSE 81–110; RESP 12–20; TEMP 97.3–102.5; O2SAT 94–99
[2024-02-09 07:01] LABS: BASOPHILS % (AUTO) 0.4 % (0-1); EOSINOPHILS # (AUTO) 0.3 X10'3 (0-0.9); LYMPHOCYTES # (AUTO) 1.2 X10'3 (1.1-4.8); LYMPHOCYTES % (AUTO) 15.6 % (21-51); MEAN CORPUSCULAR HEMOGLOBIN 29.8 PG (27.0-31.0); MEAN CORPUSCULAR HGB CONC 32.2 g/dL (33.0-36.5); MEAN CORPUSCULAR VOLUME 92.5 FL (78-98); MEAN PLATELET VOLUME 7.9 FL (7.4-10.4); MONOCYTES # (AUTO) 0.7 X10'3 (0-0.9); MONOCYTES % (AUTO) 9.4 % (2-12); NEUTROPHILS # (AUTO) 5.3 X10'3 (1.8-7.7); NEUTROPHILS % (AUTO) 70.6 % (42-75); PLATELET COUNT 196 X10'3 (140-440); RED BLOOD COUNT 3.35 X10'6 (4.20-5.60); RED CELL DISTRIBUTION WIDTH 17.2 % (11.5-14.5); WHITE BLOOD COUNT 7.5 X10'3 (4.5-11.0)
[2024-02-09 07:22] LABS: ALANINE AMINOTRANSFERASE 22 U/L (12-78); ALBUMIN 2.1 G/DL (3.4-5.0); ALBUMIN/GLOBULIN RATIO 0.6 (1.1-1.5); ALKALINE PHOSPHATASE 64 IU/L (46-116); ANION GAP 10 (8-16); ASPARTATE AMINO TRANSFERASE 25 U/L (10-37); BILIRUBIN,TOTAL 0.3 MG/DL (0.1-1.0); BLOOD UREA NITROGEN 7 MG/DL (7-18); BUN/CREATININE RATIO 14.3 (10.0-20.0); CALCIUM 8.4 MG/DL (8.5-10.1); CHLORIDE 105 MMOL/L (99-107); CREATININE 0.49 MG/DL (0.40-0.90); GLUCOSE 107 MG/DL (70-104); MAGNESIUM 2.4 MG/DL (1.5-2.4); SODIUM 139 MMOL/L (135-145); TOTAL CARBON DIOXIDE 24.5 MMOL/L (24-32); TOTAL PROTEIN 5.6 G/DL (6.4-8.2); eCRCL 79 ML/MIN; eGFR > 90 ML/MIN
[2024-02-09] MEDS ORDERED: HYDROmorphone inj. 0.5 MG/0.5 ML DISP.SYRIN IV PRN (15:32)
[2024-02-09] MEDS: polyethylene glycol 3350 17gm powd pack PO SCH (20:38)
[2024-02-10] MEDS: HYDROmorphone 1 mg/ml syringe IV PRN
[2024-02-10 06:18] VITALS: BP 137/75; PULSE 103; RESP 17; TEMP 98; O2SAT 97
[2024-02-10 07:45] LABS: BASOPHILS % (AUTO) 0.5 % (0-1); EOSINOPHILS # (AUTO) 0.3 X10'3 (0-0.9); EOSINOPHILS % (AUTO) 3.2 % (0-6); HEMATOCRIT 26.6 % (35.0-45.0); HEMOGLOBIN 8.7 g/dl (12.0-16.0); LYMPHOCYTES # (AUTO) 1.4 X10'3 (1.1-4.8); LYMPHOCYTES % (AUTO) 15.8 % (21-51); MEAN CORPUSCULAR HEMOGLOBIN 29.8 PG (27.0-31.0); MEAN CORPUSCULAR HGB CONC 32.9 g/dL (33.0-36.5); MEAN CORPUSCULAR VOLUME 90.6 FL (78-98); MONOCYTES # (AUTO) 0.9 X10'3 (0-0.9); MONOCYTES % (AUTO) 10.6 % (2-12); NEUTROPHILS # (AUTO) 6.3 X10'3 (1.8-7.7); NEUTROPHILS % (AUTO) 69.9 % (42-75); PLATELET COUNT 217 X10'3 (140-440); RED BLOOD COUNT 2.94 X10'6 (4.20-5.60); RED CELL DISTRIBUTION WIDTH 17.1 % (11.5-14.5); WHITE BLOOD COUNT 8.9 X10'3 (4.5-11.0)
[2024-02-10 07:51] LABS: ALANINE AMINOTRANSFERASE 16 U/L (12-78); ALBUMIN 1.7 G/DL (3.4-5.0); ALBUMIN/GLOBULIN RATIO 0.5 (1.1-1.5); ALKALINE PHOSPHATASE 57 IU/L (46-116); ANION GAP 7 (8-16); ASPARTATE AMINO TRANSFERASE 17 U/L (10-37); BILIRUBIN,TOTAL 0.3 MG/DL (0.1-1.0); BLOOD UREA NITROGEN 7 MG/DL (7-18); BUN/CREATININE RATIO 13.7 (10.0-20.0); CALCIUM 8.3 MG/DL (8.5-10.1); CHLORIDE 107 MMOL/L (99-107); CREATININE 0.51 MG/DL (0.40-0.90); GLUCOSE 104 MG/DL (70-104); MAGNESIUM 1.6 MG/DL (1.5-2.4); POTASSIUM 3.4 MMOL/L (3.5-5.1); SODIUM 139 MMOL/L (135-145); TOTAL PROTEIN 5.1 G/DL (6.4-8.2); eCRCL 76 ML/MIN; eGFR > 90 ML/MIN
[2024-02-10 08:00] VITALS: RESP 16
[2024-02-10 10:00] VITALS: BP 120/72; PULSE 101; RESP 20; TEMP 98.6; O2SAT 97
[2024-02-10 11:44] VITALS: PULSE 104; RESP 20; O2SAT 98
[2024-02-10] MEDS: ondansetron/PF 4mg/2ml inj IV PRN (13:14)
[2024-02-10] MEDS: potassium Cl 20 mEq SR tablet PO STA (17:53)
[2024-02-10 18:00] VITALS: BP 101/49; PULSE 93; RESP 18; TEMP 98.5; O2SAT 100
[2024-02-10 22:00] VITALS: BP 90/57; PULSE 111; RESP 14; TEMP 97.6; O2SAT 96
[2024-02-11] VITALS (8 sets, daily range): BP systolic 97–128; BP diastolic 58–66; PULSE 96–106; RESP 14–20; TEMP 97.2–98.8; O2SAT 98–100
[2024-02-11 02:21] LABS: BASOPHILS % (AUTO) 0.5 % (0-1); EOSINOPHILS # (AUTO) 0.4 X10'3 (0-0.9); EOSINOPHILS % (AUTO) 4.8 % (0-6); HEMATOCRIT 26.3 % (35.0-45.0); HEMOGLOBIN 8.4 g/dl (12.0-16.0); LYMPHOCYTES # (AUTO) 1.5 X10'3 (1.1-4.8); LYMPHOCYTES % (AUTO) 16.5 % (21-51); MEAN CORPUSCULAR HEMOGLOBIN 29.2 PG (27.0-31.0); MEAN CORPUSCULAR HGB CONC 32.1 g/dL (33.0-36.5); MEAN PLATELET VOLUME 7.6 FL (7.4-10.4); MONOCYTES % (AUTO) 10.8 % (2-12); NEUTROPHILS # (AUTO) 5.9 X10'3 (1.8-7.7); NEUTROPHILS % (AUTO) 67.4 % (42-75); PLATELET COUNT 230 X10'3 (140-440); RED BLOOD COUNT 2.89 X10'6 (4.20-5.60); RED CELL DISTRIBUTION WIDTH 17.1 % (11.5-14.5); WHITE BLOOD COUNT 8.8 X10'3 (4.5-11.0)
[2024-02-11 02:38] LABS: ALANINE AMINOTRANSFERASE 17 U/L (12-78); ALBUMIN 1.6 G/DL (3.4-5.0); ALBUMIN/GLOBULIN RATIO 0.5 (1.1-1.5); ALKALINE PHOSPHATASE 57 IU/L (46-116); ANION GAP 6 (8-16); ASPARTATE AMINO TRANSFERASE 12 U/L (10-37); BILIRUBIN,TOTAL 0.3 MG/DL (0.1-1.0); BLOOD UREA NITROGEN 11 MG/DL (7-18); BUN/CREATININE RATIO 21.2 (10.0-20.0); CALCIUM 8.3 MG/DL (8.5-10.1); CHLORIDE 106 MMOL/L (99-107); CREATININE 0.52 MG/DL (0.40-0.90); GLUCOSE 101 MG/DL (70-104); MAGNESIUM 1.4 MG/DL (1.5-2.4); POTASSIUM 4.2 MMOL/L (3.5-5.1); SODIUM 138 MMOL/L (135-145); TOTAL CARBON DIOXIDE 26.3 MMOL/L (24-32); TOTAL PROTEIN 4.7 G/DL (6.4-8.2); eCRCL 75 ML/MIN; eGFR > 90 ML/MIN
[2024-02-11] MEDS: magnesium Cl slow-release 64mg tablet PO ONE (15:00)
[2024-02-11] MEDS ORDERED: polyethylene glycol 3350 17gm powd pack PO PRN (15:00)
[2024-02-12] VITALS (8 sets, daily range): BP systolic 117–131; BP diastolic 59–76; PULSE 14–107; RESP 14–22; TEMP 97.3–98.5; O2SAT 95–100
[2024-02-12 06:06] LABS: BASOPHILS % (AUTO) 0.5 % (0-1); EOSINOPHILS # (AUTO) 0.4 X10'3 (0-0.9); EOSINOPHILS % (AUTO) 6.7 % (0-6); HEMATOCRIT 26.4 % (35.0-45.0); HEMOGLOBIN 8.5 g/dl (12.0-16.0); LYMPHOCYTES # (AUTO) 1.5 X10'3 (1.1-4.8); LYMPHOCYTES % (AUTO) 23.7 % (21-51); MEAN CORPUSCULAR HEMOGLOBIN 29.4 PG (27.0-31.0); MEAN CORPUSCULAR HGB CONC 32.4 g/dL (33.0-36.5); MEAN PLATELET VOLUME 7.5 FL (7.4-10.4); MONOCYTES # (AUTO) 0.7 X10'3 (0-0.9); MONOCYTES % (AUTO) 11.4 % (2-12); NEUTROPHILS # (AUTO) 3.6 X10'3 (1.8-7.7); NEUTROPHILS % (AUTO) 57.7 % (42-75); PLATELET COUNT 285 X10'3 (140-440); RED CELL DISTRIBUTION WIDTH 16.9 % (11.5-14.5); WHITE BLOOD COUNT 6.3 X10'3 (4.5-11.0)
[2024-02-12 06:35] LABS: ALANINE AMINOTRANSFERASE 21 U/L (12-78); ALBUMIN 1.6 G/DL (3.4-5.0); ALBUMIN/GLOBULIN RATIO 0.5 (1.1-1.5); ALKALINE PHOSPHATASE 63 IU/L (46-116); ANION GAP 7 (8-16); ASPARTATE AMINO TRANSFERASE 25 U/L (10-37); BILIRUBIN,TOTAL 0.3 MG/DL (0.1-1.0); BLOOD UREA NITROGEN 9 MG/DL (7-18); BUN/CREATININE RATIO 18.4 (10.0-20.0); CALCIUM 8.7 MG/DL (8.5-10.1); CHLORIDE 107 MMOL/L (99-107); CREATININE 0.49 MG/DL (0.40-0.90); GLUCOSE 88 MG/DL (70-104); MAGNESIUM 1.6 MG/DL (1.5-2.4); POTASSIUM 4.1 MMOL/L (3.5-5.1); SODIUM 140 MMOL/L (135-145); TOTAL CARBON DIOXIDE 26.1 MMOL/L (24-32); eCRCL 79 ML/MIN; eGFR > 90 ML/MIN
[2024-02-13 06:00] VITALS: BP 120/61; PULSE 87; RESP 14; TEMP 98.2; O2SAT 99
[2024-02-13 08:55] VITALS: RESP 16
[2024-02-13 10:00] VITALS: BP 98/58; PULSE 90; RESP 18; TEMP 98.7; O2SAT 97
[2024-02-13 13:34] VITALS: RESP 20
== END 2024-02-13 15:28 | DRG 522 ==
LOC: ER 13:56 → ED HOLD 17:00 → ORTHO 4S 21:07
PROVIDERS: ADMIT Family Medicine; ATTEND Family Medicine
PROC: 0SRR0J9 Replacement of Right Hip Joint, Femoral Surface with Synthetic Substitute, Cemented, Open Approach (ICD-10-PCS; principal; 2024-02-08 08:52)
DX: M80.051A Age-related osteoporosis with current pathological fracture, right femur, initial encounter for fracture (principal); E44.0 Moderate protein-calorie malnutrition; E87.6 Hypokalemia; D64.9 Anemia, unspecified; F17.210 Nicotine dependence, cigarettes, uncomplicated; G89.4 Chronic pain syndrome; Z66 Do not resuscitate; F41.9 Anxiety disorder, unspecified; G62.9 Polyneuropathy, unspecified; M79.7 Fibromyalgia; F32.A Depression, unspecified; Z98.84 Bariatric surgery status; Z71.6 Tobacco abuse counseling; I69.30 Unspecified sequelae of cerebral infarction; Z68.26 Body mass index [BMI] 26.0-26.9, adult
CPT/HCPCS: 36415; 71045; 72170; 73502; 80048; 80053; 80305; 80320; 81003; 82948; 83735; 85025; 85610; 86885; 86900; 86901; 87081; 93005; 94640; 94760; 97110; 97116; 97530; 99285; A4215; A4314; A4618; A5200; A6212; A6213; A6258; A6449; A7000; C1713; C1776; G0378; J0131; J0690; J0735; J1100; J1170; J2060; J2175; J2250; J2270; J2405; J2704; J2795; J3370; J3475; J3480; J3490; J7120

== ENCOUNTER 2024-04-25 16:02 | Emergency (ER) | payer MEDICARE, MEDICAID ==
[~2024-04-25] VITALS: Ht 162.6 cm; Wt 47.2 kg
[2024-04-25 17:54] VITALS: TEMP 98.4
[2024-04-25] MEDS: ondansetron/PF 4mg/2ml inj IV ONE (19:07)
[2024-04-25] MEDS: fentaNYL/PF 50MCG/1 ML 2ML syringe IV ONE (19:09)
[2024-04-25 19:14] LABS: BASOPHILS # (AUTO) 0.1 X10'3 (0-0.2); BASOPHILS % (AUTO) 0.5 % (0-1); EOSINOPHILS # (AUTO) 0.4 X10'3 (0-0.9); EOSINOPHILS % (AUTO) 3.7 % (0-6); HEMATOCRIT 29.3 % (35.0-45.0); HEMOGLOBIN 9.7 g/dl (12.0-16.0); LYMPHOCYTES # (AUTO) 2.2 X10'3 (1.1-4.8); LYMPHOCYTES % (AUTO) 22.9 % (21-51); MEAN CORPUSCULAR HEMOGLOBIN 29.3 PG (27.0-31.0); MEAN CORPUSCULAR HGB CONC 32.9 g/dL (33.0-36.5); MEAN CORPUSCULAR VOLUME 88.9 FL (78-98); MONOCYTES % (AUTO) 9.9 % (2-12); NEUTROPHILS # (AUTO) 6.2 X10'3 (1.8-7.7); PLATELET COUNT 312 X10'3 (140-440); RED CELL DISTRIBUTION WIDTH 17.2 % (11.5-14.5); WHITE BLOOD COUNT 9.8 X10'3 (4.5-11.0)
[2024-04-25 19:25] LABS: ALBUMIN 3.1 G/DL (3.4-5.0); ANION GAP 9 (8-16); BLOOD UREA NITROGEN 17 MG/DL (7-18); BUN/CREATININE RATIO 23.9 (10.0-20.0); CALCIUM 8.7 MG/DL (8.5-10.1); CHLORIDE 107 MMOL/L (99-107); CREATININE 0.71 MG/DL (0.40-0.90); GLUCOSE 93 MG/DL (70-104); SODIUM 140 MMOL/L (135-145); eCRCL 46 ML/MIN; eGFR 79 ML/MIN
[2024-04-25] MEDS ORDERED: AMOX500C2 PO (20:01)
[2024-04-25] MEDS: ketorolac trometh 15mg/ml vial 15 MG/ML ML IV ONE (20:03)
[2024-04-25 20:13] VITALS: BP 102/59; PULSE 77; RESP 16; O2SAT 97
== END 2024-04-25 20:40 | disposition home or self-care (01) ==
LOC: ER 16:03
DX: M25.551 Pain in right hip (principal); M25.511 Pain in right shoulder; M54.2 Cervicalgia; R68.84 Jaw pain; M79.7 Fibromyalgia; R51.9 Headache, unspecified; M19.90 Unspecified osteoarthritis, unspecified site; J32.9 Chronic sinusitis, unspecified; Z86.73 Personal history of transient ischemic attack (TIA), and cerebral infarction without residual deficits; Z98.84 Bariatric surgery status; W19.XXXA Unspecified fall, initial encounter; Y93.89 Activity, other specified; Y92.89 Other specified places as the place of occurrence of the external cause; Y99.8 Other external cause status
CPT/HCPCS: 36415; 70450; 70486; 72125; 72170; 73030; 80048; 85025; 93005; 96374; 96375; 99285; J1885; J2405; J3010

== ENCOUNTER 2025-04-22 13:33 | Inpatient (IN) | payer MEDICARE, MEDICAID ==
[~2025-04-22] VITALS: Ht 167.6 cm; Wt 62.0 kg
[~2025-04-22 13:33] MED LIST changes: +ASPI-257; +DULO20CA18 PO; +HYDR-3965 PO; +MELA10CA11 PO; -NO HOME MEDS; +TYL650S
--- NOTE | 2025-04-22 13:46 | Physician Documentation ---
History of Present Illness General Chief Complaint: See Chief Complaint Stated Complaint: HEADACHE Time Seen by MD: 13:35 Primary Medical Doctor: Adina History of Present Illness Initial Comments The patient from [place] [facility] acute with increased confusion and a complaint of headache and nausea. The patient is unable to provide any additional history the patient now has just complaining of some nausea and a headache she does appear to be responding to external stimuli. Medication Reconciliation Allergies: Coded Allergies: No Known Allergies (Unverified , 01/06/25) Scheduled Melatonin (Melatonin), 1 CAP PO HS, (Reported) Scheduled PRN Acetaminophen (Tylenol), 1 TAB .SEE ORDER Q6H PRN for pain or fever, (Reported) Duloxetine HCl (Duloxetine HCl), 1 CAP PO TID PRN for pain, (Reported) Hydrocodone Bit/Acetaminophen 5/325 MG ([place] 5/325 MG), 1-2 TAB PO Q4HPRN PRN for pain, (Reported) Miscellaneous Medications Aspirin (Aspirin), (Reported) Past Medical History Past Medical History: CVA/TIA/Stroke, Peripheral Neuropathy, Arthritis, Chronic Pain, Fibromyalgia, Depression Past Surgical History: gastric bypass Smoking: Cigarettes Alcohol Use: Occasionally Drug Use: none Lives In: Home Occupation: retired Review of Systems Unable to obtain complete ROS: dementia Physical Exam Physical Exam Vital Signs: Temperature: 99.6, Source: Oral, Heart Rate: 94, Respiratory Rate: 22, BP: 127/72, Pulse Oximetry: 98, Weight: 62.000 Oxygen Flow Rate: 0 Physical Exam VITALS: Reviewed and as above. GENERAL: Alert, no apparent distress. HEENT: Normocephalic, atraumatic, PERRL, EOMI, dry mucosa, no erythema RESPIRATORY: Lungs clear, normal breath sounds, no respiratory distress. CHEST: No accessory muscle use, no retractions CV: Regular rate, rhythm, no edema, no murmur, No: JVD GI: Soft, non-tender, bowels sounds present, no rebound, guarding, or rigidity BACK: No CVA tenderness, or swelling MUSCULOSKELETAL: No deformities, no edema SKIN: Warm and dry, no rash NEURO: Oriented x x1 the patient is able to move all extremities. The patient does not know the date or the location of where she is. Appears to be responding to external stimuli and talking to people that are not in the room. PSYCH: Responding to internal stimuli and likely hallucinating Progress Results/Orders Results/Orders Orders - OHLMATHEUS GURROLA MD Chest,Single View (04/22/25 13:46) Ct Head (04/22/25 14:15) Cult Urine + [address] Ct (04/22/25 16:50) Page Hospitalist (04/22/25 17:45) Completed Orders - OHMATHEUS BARNHART MD Cbc/Diff (04/22/25 13:37) BMP (04/22/25 13:37) Lipase (04/22/25 13:37) CMP (04/22/25 13:37) Chest,Single View (04/22/25 13:46) Procalcitonin (04/22/25 13:46) Normal Saline 1000ml (0.9% Sodium Chlori (04/22/25 13:50) Ct Head (04/22/25 14:15) Ua W/Microscopic, Cult If Ind (04/22/25 16:24) Ceftriaxone/D3e-Jdwrklew 1gm (Rocephin 1 (04/22/25 17:45) PBNP (04/22/25 13:43) Vital Signs 04/22/25 04/22/25 04/22/25 04/22/25 13:33 14:30 15:51 17:14 Temp 99.6 Pulse 94 107 108 108 Resp 22 16 15 13 B/P (MAP) 127/72 143/72 (95) 155/99 (117) 142/83 (102) Pulse Ox 98 99 91 96 O2 Flow Rate 0 2.0 2.0 2.0 Laboratory Tests Test 04/22/25 13:43 04/22/25 13:54 04/22/25 16:24 White Blood Count 10.6 Red Blood Count 4.16 L Hemoglobin 12.6 Hematocrit 37.9 Mean Corpuscular Volume 91.2 Mean Corpuscular Hemoglobin 30.4 Mean Corpuscular Hemoglobin Concent 33.3 Red Cell Distribution Width 12.9 Platelet Count 272 Mean Platelet Volume 7.8 Neutrophils (%) (Auto) 78.1 H Lymphocytes (%) (Auto) 12.3 L Monocytes (%) (Auto) 7.1 Eosinophils (%) (Auto) 2.1 Basophils (%) (Auto) 0.4 Neutrophils # (Auto) 8.3 H Lymphocytes # (Auto) 1.3 Monocytes # (Auto) 0.8 Eosinophils # (Auto) 0.2 Basophils # (Auto) 0.0 CBC Comment Sodium Level 140 Potassium Level 3.7 Chloride Level 107 Carbon Dioxide Level 24.2 Anion Gap 9 Blood Urea Nitrogen 15 Creatinine 0.86 Estimated GFR/1.73 m2 63 BUN/Creatinine Ratio 17.4 Glucose Level 120 H Lactic Acid Level 1.6 Calcium Level 8.7 Total Bilirubin 0.4 Aspartate Amino Transf (AST/SGOT) 23 Alanine Aminotransferase (ALT/SGPT) 20 Alkaline Phosphatase 110 Pro-B-Type Natriuretic Peptide 684 H Total Protein 7.0 Albumin 3.5 Globulin 3.5 Albumin/Globulin Ratio 1.0 L Lipase 32 Procalcitonin < 0.05 Chemistry Comments Glucometer 112 H Urine Specimen Description Non-specified Urine Color Yellow Urine Clarity Slightly cloudy Urine pH 6.0 Urine Specific Tiff 1.025 Urine Protein 30 H Urine Glucose (UA) Negative Urine Ketones Negative Urine Occult Blood Small Urine Nitrite Positive H Urine Bilirubin Negative Urine Urobilinogen 0.2 Urine Leukocyte Esterase Small H Urine RBC 3-10 Urine WBC 20-30 H Urine Squamous Epithelial Cells Few Urine Bacteria 4+ Urine Culture Indicated Indicated Volume Urine Centrifuged 10 ml Urine Comment Urine Opiates Screen Negative Urine Methadone Screen Negative Urine Fentanyl Screen Negative Urine Barbiturates Screen Negative Urine Phencyclidine Screen Negative Urine Amphetamines Screen Negative Urine Benzodiazepines Screen Negative Urine Cocaine Screen Negative Urine Cannabinoids Screen Negative Drug Screen Comment Microbiology Date/Time Source Procedure Growth Status 04/22/25 16:50 Urine Nonspecified Urine Culture - Preliminary Culture received. Resulted Medical Decision Making Additional information obtaine: old records Findings The patient was sent in for altered mental status the patient is alert and oriented x1 she did become fairly somnolent and difficult to arouse while in the emergency department and she was only responding to painful stimuli for a small amount of time she has become more alert she is back to alert and oriented to her name just confused about where she is in the date, the patient's workup here has shown a CT scan without any acute pathology she has additionally a urinary tract infection she will be treated for the urinary tract infection admitted to the hospitalist. Prior hospitalizations has been reviewed. The patient's telemetry monitor was interpreted as a sinus rhythm in his pulse oximetry was interpreted as adequate and normal. The case has been discussed with the hospitalist. Differential Diagnosis Encephalopathy, CVA, medication misadventure Departure Admitted to Inpatient Unit: yes, to hospitalist Impression: Primary Impression: Altered mental status Qualified Codes: R41.82 - Altered mental status, unspecified Additional Impression: Urinary tract infection Qualified Codes: N30.00 - Acute cystitis without hematuria Referrals: NO PRIMARY CARE PROVIDER (PCP) Signature Scribe Signature: No scribe Attestation: The note accurately reflects work and decisions made by me.Matheus Cameron MD 04/23/25 07:30 MATHEUS CAMERON MD Apr 22, 2025 13:46
[2025-04-22 13:55] LABS: MEAN PLATELET VOLUME 7.8 FL (7.4-10.4); RED CELL DISTRIBUTION WIDTH 12.9 % (11.5-14.5)
[2025-04-22 14:06] LABS: CREATININE 0.86 MG/DL (0.40-0.90); TOTAL CARBON DIOXIDE 24.2 MMOL/L (24-32); eCRCL 47 ML/MIN; eGFR 63 ML/MIN
--- NOTE | 2025-04-22 14:34 | RADIOLOGY REPORT ---
CLINICAL HISTORY: altered TECHNIQUE: Helical scanning was performed of the head from the skull base to the vertex. Multiplanar reconstructions were performed. This exam was performed according to our departmental dose optimization program. Up-to-date CT equipment and radiation dose reduction techniques are utilized as appropriate. CTDI 60 DLP 1075 COMPARISON: CT CT HEAD on DOS: 01/06/25, CT CT HEAD on DOS: 04/25/24, CT CT HEAD on DOS: 04/11/24, CT CT HEAD on DOS: 12/17/23, MRI HEAD on DOS: 04/11/22 FINDINGS: There is no evidence for acute intracranial hemorrhage, acute ischemic changes, mass, mass effect, or extra-axial fluid collection. There is no hydrocephalus or midline shift. There is no effacement of the cerebral sulci and basal subarachnoid cisterns. The smith-white matter differentiation is well maintained. The imaged paranasal sinuses demonstrates complete opacification of the left maxillary sinus with reactive lazaro osteogenesis. There has been bilateral cataract extraction. IMPRESSION: No acute intracranial abnormality seen. Chronic left maxillary sinusitis.
--- NOTE | 2025-04-22 14:39 | RADIOLOGY REPORT ---
CHEST RADIOGRAPH Indication: altered Technique: Single frontal view of the chest was obtained Comparison: DI CHEST,SINGLE VIEW on DOS: 01/06/25, DI CHEST,SINGLE VIEW on DOS: 02/07/24, DI CHEST,SINGLE VIEW on DOS: 12/24/23 FINDINGS: Lines and Tubes: None Lungs: No focal consolidation. Mild rightward deviation of the trachea. Pleura: No effusion. No pneumothorax. Cardiomediastinal contours: Unremarkable Bones: No acute osseous abnormality. IMPRESSION: No acute cardiopulmonary disease.
[2025-04-22] MEDS: normal saline 1000ML IV soln IVB ONE (14:46)
[2025-04-22 16:36] LABS: LEUKOCYTE ESTERASE ,URINE SMALL (Neg); NITRITES, URINE POSITIVE (Neg); OCCULT BLOOD,URINE SMALL (Neg)
[2025-04-22 16:49] LABS: UA COLLECTION TYPE NON-SPECIFIED
[2025-04-22 16:50] LABS: SQUAMOUS EPITHELIAL CELL,UR FEW /LPF (FEW)
[2025-04-22] MEDS: CefTRIAXone/D5W-Rocephin 1gm 50 ML IV ONE (17:54)
[2025-04-22] MEDS ORDERED: potassium Cl 20 mEq SR tablet PO PRN (18:25)
[2025-04-22] MEDS ORDERED: magnesium sulf-water 2g/50mL 50 ML IV PRN (18:25)
[2025-04-22] MEDS ORDERED: potassium Cl 40MEQ/1/2NS 520ml 520 ML IV PRN (18:25)
[2025-04-22] MEDS ORDERED: ondansetron/PF 4mg/2ml inj IV PRN (18:25)
[2025-04-22] MEDS ORDERED: magnesium Cl slow-release 64mg tablet PO PRN (18:25)
[2025-04-22] MEDS ORDERED: magnesium sulf-water 4G/100mL 100 ML IV PRN (18:25)
[2025-04-22] MEDS ORDERED: mag hydrox/Alum hydrox/simeth 30ml oral suspension PO PRN (18:25)
[2025-04-22] MEDS ORDERED: magnesium hydroxide 30ml (MOM) UD suspension PO PRN (18:25)
--- NOTE | 2025-04-22 18:34 | HISTORY AND PHYSICAL-Residence ---
History & Physical Providers to Resident Creating Document: FAITH TRINIDAD, RES ~ History of Present Illness Primary Medical Doctor: Sherman/NICOLASA Reason for Admit\Complaint: Altered level of consciousness History of Present Illness 80-year-old female patient presented to the hospital transferred from [facility] due to worsening level of consciousness. The patient has been evaluated at the bedside, not able to provide history, stating headache, able to answer her name but not oriented in place or time. The patient appeared somnolent. As per medical records the patient presented with increased confusion, she does have baseline dementia, being able to express her needs, noticeable currently not able to provide much history about her symptoms. Upon arrival to the emergency department the patient complaint of some nausea and headache. Allergies: Coded Allergies: No Known Allergies (Unverified , 01/06/25) Home Medications Home Medications Active Reported Tylenol (Acetaminophen) 650 Mg Supp.rect 1 Tab .SEE ORDER Q6H PRN 1 Days Melatonin 10 Mg Capsule 1 Cap PO HS 30 Days Duloxetine HCl 20 Mg Capsule.dr 1 Cap PO TID PRN Aspirin 81 Mg Tab.chew [place] 5/325 MG (Acetaminophen/Hydrocodone Bitart) 5 Mg/325 Mg Tablet 1-2 Tab PO Q4HPRN PRN 3 Days Past Medical History Past Medical History Baseline dementia. Fibromyalgia CVA 1989 TIA. Gastric bypass 1969 Depression Osteoporosis History of alcohol abuse Past Surgical History Surgical History Comment Gastric bypass 1969 Orthopedic surgery Family History Family History: FH: CVA (cerebrovascular accident) FATHER FH: cancer MOTHER Past Social History Smoking: Cigarettes Alcohol Use: Occasionally Drug Use: None Lives In: Home Occupation: retired ROS Unable to obtain: altered mental status, dementia Exam Vitals: Vital Signs Date Time Temp Pulse Resp B/P (MAP) Pulse Ox O2 Delivery O2 Flow Rate FiO2 04/22/25 17:14 108 13 142/83 (102) 96 2.0 04/22/25 13:33 99.6 Physical exam: General: Elderly frail female patient, somnolent, not able to answer questions, confused. HEENT: Conjunctive are pink, sclerae clear, no icterus, pupil is equal in both sides, reactive to light, no ear discharge, no pharyngeal erythema or an edema. Neck: Supple, no adenopathy, thyromegaly. Trachea is midline. No JVD. Chest: Respiratory: Vesicular breath sounds. No ronchi, crepitus or wheezing. Resonance is normal upon percussion of all lung reyes. Cardiovascular: S1-S2 regular sinus rhythm and, regular rate, tachycardia, no gallops, no rubs, no murmurs Abdomen: No visible distention, Bowel sounds present on auscultation, on palpation: soft, tenderness in the level of the hypogastrium, no guarding, no rigidity. Extremities: No obvious deformities, no pitting edema bilaterally, capillary refill intact, peripheral pulsations are intact on both sides Neurologic: Mental status: Somnolent, oriented to person but not in place or time. Not cooperating with full neurological exam. Able to move all four extremities equally. Skin: Warm and dry. Diagnostic Data Last Recorded Lab Results: 04/22/25 1343 04/22/25 1343 Advance Care Planning Advanced Care plannin - 30 Minutes (The patient presented with a POLST showing DNR.) Additional Plan Assessment and plan: 80-year-old female patient presented to the hospital due to altered level of consciousness. Altered level of consciousness: Metabolic encephalopathy vs toxic encephalopathy: The patient presented to the hospital after being found confused. The patient does has a baseline dementia but she usually is able to communicate her needs, at this time was noticed more confused and altered. CT scan of the head was obtained showing no acute intracranial abnormality, chronic left maxillary sinusitis. Urinalysis positive for urinary tract infection. Plan: Follow-up blood on urine cultures. Ceftriaxone 1 g IV daily. NS at 50 mL/hour. Urinary tract infection: Urinalysis positive for nitrate, leukocyte esterase and WBC 20-30, urine bacteria 4+. Currently on IV antibiotic ceftriaxone. Chronic systolic congestive heart failure with improved ejection fraction: Echocardiogram in 12/18/2023 showed ejection fraction of 45%, echocardiogram on January 07, 2025 showed an ejection fraction of 55%. Normal left ventricular size and wall thickness. Overall systolic function is low normal. Moderate mitral regurgitation. Other comorbidities: Fibromyalgia, chronic pain, depression: Continue home medication after med reconciliation. Code status: DNR DVT prophylaxis: Heparin and SCDs Analgesia/sedation: Morphine Line/tube: PIV GI prophylaxis: Protonix Nutrition: Regular diet after passing swallow evaluation. PT: Yes Prognosis: Guarded Disposition: The patient will be admitted to neuro with telemetry. Faith Adame Internal Medicine Resident [facility] Date of Service: Apr 22, 2025 Billing Provider: ARAVIND BANKS MD Common Visit Codes: 63390-JHFBCXX INP/OBS CARE (HIGH) Secondary Visit Codes: 41610-GWSSUAAZ CARE PLAN 30 MINUTES FAITH TRINIDAD, RES Apr 22, 2025 18:34 ARAVIND BANKS MD Apr 24, 2025 06:33
[2025-04-22] MEDS: normal saline 1000ml 1,000 ML IV SCH (19:01)
[2025-04-22 19:20] LABS: PRO BRAIN NATRIURETIC PEPTIDE 684 PG/ML (0-450)
[2025-04-22 19:27] LABS: URINE AMPHETAMINE SCREEN NEGATIVE (Neg); URINE BARBITUATE SCREEN NEGATIVE (Neg); URINE BENZODIAZEPINES SCREEN NEGATIVE (Neg); URINE CANNABINOID SCREEN NEGATIVE (Neg); URINE COCAINE SCREEN NEGATIVE (Neg); URINE METHADONE SCREEN NEGATIVE (Neg); URINE OPIATE SCREEN NEGATIVE (Neg); URINE PHENCYCLIDINE SCREEN NEGATIVE (Neg)
[2025-04-22] MEDS: K and/or MAG REPLACEMENT MC SCH (20:26)
[2025-04-22] MEDS: heparin, porcine 5000 units/ml vial SQ SCH (20:35)
[2025-04-23 00:14] VITALS: BP 100/65; PULSE 95; RESP 15; TEMP 97.6; O2SAT 99
[2025-04-23 05:11] LABS: MEAN PLATELET VOLUME 8.2 FL (7.4-10.4); RED CELL DISTRIBUTION WIDTH 12.9 % (11.5-14.5)
[2025-04-23 05:32] LABS: CREATININE 0.82 MG/DL (0.40-0.90); TOTAL CARBON DIOXIDE 21.7 MMOL/L (24-32); eCRCL 50 ML/MIN; eGFR 67 ML/MIN
[2025-04-23 06:00] VITALS: BP 104/61; PULSE 79; RESP 14; TEMP 97.9; O2SAT 96
[2025-04-23] MEDS: CefTRIAXone/D5W-Rocephin 1gm 50 ML IV SCH (07:55)
[2025-04-23] MEDS: pantoprazole 40mg Tablet.DR PO SCH (07:55)
[2025-04-23 10:00] VITALS: BP 93/59; PULSE 66; RESP 16; TEMP 98.4; O2SAT 96
[2025-04-23 18:00] VITALS: BP 114/57; PULSE 88; RESP 18; TEMP 98.8; O2SAT 98
--- NOTE | 2025-04-23 19:03 | PROGRESS NOTE- Residence ---
Progress Note - Resident Providers to CC Resident Creating Document: CHARLES WETZEL RES ~ Antibiotic Timeout Antibiotic Ordered?: Yes Subjective Patient was seen and examined on bedside, she was complaining of pain in her all joints as she reports its from arthritis. Objective Vital Signs Date Time Temp Pulse Resp B/P (MAP) Pulse Ox O2 Delivery O2 Flow Rate FiO2 04/23/25 14:47 17 04/23/25 10:00 98.4 66 93/59 (70) 96 Room Air 04/22/25 19:00 2.0 Result Diagram: 04/23/2543104/23/25431 Physical exam: General: awake, alert and oriented HEENT: Conjunctive are pink, sclerae clear, no icterus, pupil is equal in both sides, reactive to light, no ear discharge, no pharyngeal erythema or an edema. Neck: Supple, no adenopathy, thyromegaly. Trachea is midline. No JVD. Chest: Respiratory: Vesicular breath sounds. No ronchi, crepitus or wheezing. Resonance is normal upon percussion of all lung reyes. Cardiovascular: S1-S2 regular sinus rhythm and, regular rate, tachycardia, no gallops, no rubs, no murmurs Abdomen: Bowel sounds present on auscultation, on palpation: soft, tenderness in the level of the hypogastrium, no guarding, no rigidity. Extremities: no pitting edema bilaterally, capillary refill intact, peripheral pulsations are intact on both sides Osteoarthritis changes noted in upper and lower extremities Neurologic: power muscles 5/5, reflexes normal bilaterally, sensation intact. Cranil nerves intact Skin: Warm and dry. Advance Care Planning Advanced Care plannin - 30 Minutes Plan Plan Assessment and plan: 80-year-old female patient presented to the hospital due to altered level of consciousness. Acute Metabolic encephalopathy secondary to UTI The patient presented to the hospital after being found confused. The patient does has a baseline dementia but she usually is able to communicate her needs, at this time was noticed more confused and altered. CT scan of the head was obtained showing no acute intracranial abnormality, chronic left maxillary sinusitis. Urinalysis positive for urinary tract infection. Preliminary blood culture positive for Gram-negative rods Preliminary blood culture negative Ceftriaxone 1 g IV daily day 2 NS at 50 mL/hour. Urinary tract infection CYSTITIS Urinalysis positive for nitrate, leukocyte esterase and WBC 20-30, urine bacteria 4+. Continue IV ceftriaxone day 2 Chronic systolic congestive heart failure with improved ejection fraction: Echocardiogram in 12/18/2023 showed ejection fraction of 45%, echocardiogram on January 07, 2025 showed an ejection fraction of 55%. Normal left ventricular size and wall thickness. Overall systolic function is low normal. Moderate mitral regurgitation. Fibromyalgia Continue duloxetine CODE STATUS: DNR DVT PROPHYLAXIS: HEPARIN GI PROPHYLAXIS PANTOPRAZOLE 40 MG DISPOSITION: Continue monitoring patient. Date of Service: Apr 23, 2025 Billing Provider: ARAVIND BANKS MD Common Visit Codes: [id number] INP/OBS CARE(HIGH) CHARLES WETZEL, RES Apr 23, 2025 19:03 ARAVIND BANKS MD Apr 24, 2025 06:34
[2025-04-23 20:00] VITALS: RESP 18; O2SAT 98
[2025-04-23 22:00] VITALS: BP 102/59; PULSE 75; RESP 19; TEMP 97.8; O2SAT 96
[2025-04-24 06:00] VITALS: BP 112/69; PULSE 74; RESP 16; TEMP 98; O2SAT 99
[2025-04-24 07:04] LABS: MEAN PLATELET VOLUME 8.3 FL (7.4-10.4); RED CELL DISTRIBUTION WIDTH 13.4 % (11.5-14.5)
[2025-04-24] MEDS: duloxetine 20mg capsule.DR PO PRN (07:04)
[2025-04-24 07:07] LABS: CREATININE 0.89 MG/DL (0.40-0.90); TOTAL CARBON DIOXIDE 24.8 MMOL/L (24-32); eCRCL 46 ML/MIN; eGFR 61 ML/MIN
[2025-04-24 07:13] VITALS: RESP 16; O2SAT 95
[2025-04-24] MEDS: potassium Cl 20 mEq SR tablet PO PRN (09:58)
[2025-04-24 10:00] VITALS: BP 102/52; PULSE 86; RESP 14; TEMP 97.5; O2SAT 100
[2025-04-24] MEDS: amox tr/potassium clavulanate 875/125mg TAB PO SCH (10:46)
--- NOTE | 2025-04-24 19:40 | DISCHARGE SUMMARY-Residence ---
Discharge Summary Providers to CC Resident Creating Document: DAMARICANDYCHARLESLUCIEN ADAMS ~ Discharge Summary Admission Diagnosis: ALOC Hospital Course DATE OF ADMISSION: 04/22/25 DATE OF DISCHARGE: 04/24/25 Discharge Diagnosis\Comment: Acute Metabolic Encelopathy Secondary to UTI Uti cystitis Fibromyalgia Osteoarthritis Chronic systolic congestive heart failure with improved Ejection Fraction Operations\Procedures: none Consultants: none Complications: none Condition on DC: Stable Discharge Summary: History of Present Illness As per Admitting Physician 80-year-old female patient presented to the hospital transferred from [facility] due to worsening level of consciousness. The patient has been evaluated at the bedside, not able to provide history, stating headache, able to answer her name but not oriented in place or time. The patient appeared somnolent. As per medical records the patient presented with increased confusion, she does have baseline dementia, being able to express her needs, noticeable currently not able to provide much history about her symptoms. Upon arrival to the emergency department the patient complaint of some nausea and headache. Hospital Course The patient, who has a history of baseline dementia, was admitted due to worsening level of consciousness. Initial evaluation revealed an altered level of consciousness, suspected to be due to metabolic versus toxic encephalopathy. CT scan of the head showed no acute intracranial abnormalities, Workup identified a urinary tract infection as the likely cause of her acute mental status changes, with urinalysis suggestive of UTI, urine culture was positive for E.coli which was pansensitive, She was treated with intravenous ceftriaxone, resulting in clinical improvement,her level of consciouness was improved.For DVT prophylaxis heparin was adminstered. At the time of discharge, the patient was stable,and ready for discharge. Discharge Medications Augmentin 825-125 mg BID for 5 days Cultuerelle Capsule PO daily for 30 days Aspirin 81 MG daily. Pantoprazole 40 MG PO for 10 days Duloxetine 20 MG Acetaminophen 650 mg Q6H prn pain or fever Melatonin 10 MG po HS Physical Examination General: awake, alert and oriented HEENT: Conjunctive are pink, sclerae clear, no icterus, pupil is equal in both sides, reactive to light, no ear discharge, no pharyngeal erythema or an edema. Neck: Supple, no adenopathy, thyromegaly. Trachea is midline. No JVD. Respiratory: Vesicular breath sounds. No ronchi, crepitus or wheezing. Resonance is normal upon percussion of all lung reyes. Cardiovascular: S1-S2 regular sinus rhythm and, regular rate, tachycardia, no gallops, no rubs, no murmurs Abdomen: Bowel sounds present on auscultation, on palpation: soft, tenderness in the level of the hypogastrium, no guarding, no rigidity. Extremities: no pitting edema bilaterally, capillary refill intact, peripheral pulsations are intact on both sides Osteoarthritis changes noted in upper and lower extremities Neurologic: power muscles 5/5, reflexes normal bilaterally, sensation intact. Cranil nerves intact Skin: Warm and dry. LABS Laboratory Tests Test 04/23/25 04:32 04/24/25 05:54 White Blood Count 9.2 X10'3 4.8 X10'3 Red Blood Count 3.54 X10'6 3.51 X10'6 Hemoglobin 11.0 g/dl 10.5 g/dl Hematocrit 32.1 % 31.9 % Mean Corpuscular Volume 90.6 FL 90.9 FL Mean Corpuscular Hemoglobin 31.0 PG 29.9 PG Mean Corpuscular Hemoglobin Concent 34.2 g/dL 32.8 g/dL Red Cell Distribution Width 12.9 % 13.4 % Platelet Count 246 X10'3 220 X10'3 Mean Platelet Volume 8.2 FL 8.3 FL Neutrophils (%) (Auto) 64.9 % 40.8 % Lymphocytes (%) (Auto) 24.7 % 41.9 % Monocytes (%) (Auto) 10.0 % 8.9 % Eosinophils (%) (Auto) 0.1 % 7.3 % Basophils (%) (Auto) 0.3 % 1.1 % Neutrophils # (Auto) 6.0 X10'3 2.0 X10'3 Lymphocytes # (Auto) 2.3 X10'3 2.0 X10'3 Monocytes # (Auto) 0.9 X10'3 0.4 X10'3 Eosinophils # (Auto) 0.0 X10'3 0.3 X10'3 Basophils # (Auto) 0.0 X10'3 0.1 X10'3 CBC Comment Sodium Level 144 MMOL/L 144 MMOL/L Potassium Level 3.6 MMOL/L 3.4 MMOL/L Chloride Level 111 MMOL/L 113 MMOL/L Carbon Dioxide Level 21.7 MMOL/L 24.8 MMOL/L Anion Gap 11 6 Blood Urea Nitrogen 17 MG/DL 17 MG/DL Creatinine 0.82 MG/DL 0.89 MG/DL Estimated GFR/1.73 m2 67 ML/MIN 61 ML/MIN BUN/Creatinine Ratio 20.7 19.1 Glucose Level 111 MG/DL 86 MG/DL Calcium Level 8.0 MG/DL 8.2 MG/DL Magnesium Level 1.7 MG/DL 1.9 MG/DL Total Bilirubin 0.6 MG/DL 0.4 MG/DL Aspartate Amino Transf (AST/SGOT) 30 U/L 34 U/L Alanine Aminotransferase (ALT/SGPT) 21 U/L 20 U/L Alkaline Phosphatase 95 IU/L 82 IU/L Total Protein 5.8 G/DL 5.5 G/DL Albumin 2.8 G/DL 2.6 G/DL Globulin 3.0 G/DL 2.9 G/DL Albumin/Globulin Ratio 0.9 0.9 Thyroid Stimulating Hormone (TSH) 0.51 ulU/ml Chemistry Comments Imaging CT HEAD FINDINGS: There is no evidence for acute intracranial hemorrhage, acute ischemic changes, mass, mass effect, or extra-axial fluid collection. There is no hydrocephalus or midline shift. There is no effacement of the cerebral sulci and basal subarachnoid cisterns. The smith-white matter differentiation is well maintained. The imaged paranasal sinuses demonstrates complete opacification of the left maxillary sinus with reactive lazaro osteogenesis. There has been bilateral cataract extraction. IMPRESSION: No acute intracranial abnormality seen. Chronic left maxillary sinusitis. CHEST X-RAY FINDINGS: Lines and Tubes: None Lungs: No focal consolidation. Mild rightward deviation of the trachea. Pleura: No effusion. No pneumothorax. Cardiomediastinal contours: Unremarkable Bones: No acute osseous abnormality. IMPRESSION: No acute cardiopulmonary disease. *Problems/Diagnosis: (1) Altered mental status Status: Resolved Total Time Spent on D/C: > 30 Minutes Date of Service: Apr 24, 2025 Billing Provider: ARAVIND BANKS MD Common Visit Codes: 55903-BEX/OBS DISCH DAY >30min Problem Qualifiers (1) Altered mental status: Altered mental status type: unspecified Qualified Codes: R41.82 - Altered mental status, unspecified HEVER WETZELY, RES Apr 24, 2025 19:40 ARAVIND BANKS MD Apr 25, 2025 07:48
== END 2025-04-24 16:15 | DRG 689 ==
LOC: ER 13:33 → ED HOLD 18:03 → ORTHO 4S 23:55
PROVIDERS: ADMIT Internal Medicine; ATTEND Internal Medicine
DX: N30.00 Acute cystitis without hematuria (principal); G93.41 Metabolic encephalopathy; I50.22 Chronic systolic (congestive) heart failure; F32.A Depression, unspecified; G62.9 Polyneuropathy, unspecified; M79.7 Fibromyalgia; Z98.84 Bariatric surgery status; Z87.891 Personal history of nicotine dependence; Z86.73 Personal history of transient ischemic attack (TIA), and cerebral infarction without residual deficits; M19.90 Unspecified osteoarthritis, unspecified site
CPT/HCPCS: 36415; 70450; 71045; 80053; 80305; 81001; 82948; 83605; 83690; 83735; 83880; 84145; 84443; 85025; 87040; 87077; 87081; 87088; 87186; 92508; 96361; 96365; 96372; 97161; 97530; 99285; G0378; J0696; J1644; J2270; J7030